=== PATIENT | female | born 1985 | race Caucasian/White ===

== ENCOUNTER 2024-04-15 12:08 | Inpatient (IN) ==
[2024-04-15] MEDS: SODIUM CHLORIDE 0.9% 1,000 ML IV ONE ×3 (12:48→15:54)
--- NOTE | 2024-04-15 13:15 | XRay Report ---
XR chest 1V portable CLINICAL HISTORY: sob COMPARISON STUDY: 03/29/2011 FINDINGS: Single view chest demonstrates no acute cardiopulmonary process. There is no infiltrate or pleural effusion. There is no pneumothorax. The heart and pulmonary vascularity are unremarkable. IMPRESSION: Negative single view chest ACT 112: Negative or not required by law. Electronically signed by: Savanna Webb M.D. 04/15/2024 1:14 PM
--- NOTE | 2024-04-15 13:17 | CT Scan Report ---
ABDOMEN AND PELVIS CT WITHOUT CONTRAST CT DOSE: 734.05 mGy.cm HISTORY: L flank pain TECHNIQUE: Multiaxial CT images of the abdomen and pelvis were performed without contrast. A dose lo wering technique was utilized adhering to the principles of ALARA. COMPARISON STUDY: None FINDINGS: ABDOMEN: There is mild fatty liver. Otherwise the liver, gallbladder, spleen, pancreas, and adrenal g lands have an unremarkable non-IV contrasted appearance. The kidneys show no hydronephrosis or calcul i. No abdominal aortic aneurysm. Pelvis: Urinary bladder is distended. There is a 3 cm cyst at the right ovary. Otherwise uterus and a dnexa are grossly unremarkable. There is moderate retained stool. No bowel inflammation or obstructio n. Normal appendix. No free fluid, free air, or abscess. No enlarged adenopathy. Osseous structures: No acute osseous findings. IMPRESSION: 1. No acute findings. 2. Otherwise as described. ACT 112: Negative or not required by law. The above report was generated using voice recognition software. It may contain grammatical, syntax o r spelling errors. Electronically signed by: Dev Ram M.D. 04/15/2024 1:16 PM
[2024-04-15 13:18] LABS: Appearance Urine Clear (Clear); Bacteria Urine Automated None Seen (None Seen); Bilirubin Urine Negative (Negative); Blood Urine Trace (Negative); Color Urine Yellow; Epithelial Cell Urine Auto 0-2 /hpf (0-2); Glucose Urine UA 2+ (Negative); Ketones Urine 4+ (Negative); Leukocyte Esterase Urine Negative (Negative); Nitrite Urine Negative (Negative); Protein Urine 2+ (Negative); RBC Urine Automated 0-2 /hpf (0-2); Specific Gravity Urine 1.025 (1.000-1.030); Urobilinogen Urine Negative (Negative); WBC Urine Automated 0-5 /hpf (0-5)
[2024-04-15 13:24] LABS: ALC (manual) 1.17 K/uL (1.2-3.4); ANC (manual) 21.34 K/uL (1.4-6.5); Hematocrit (blood only) 51.9 % (37.0-47.0); Hemoglobin 16.5 g/dl (12.0-16.0); Lymphocytes # (manual) 1.17 K/uL (1.2-3.4); Lymphocytes % (manual) 5 %; Mean Corpuscular Hemoglobin 30.2 pg (25.0-34.0); Mean Corpuscular Hgb Conc 31.8 g/dL (32.0-36.0); Mean Corpuscular Volume 94.9 fL (80.0-100.0); Mean Platelet Volume 10.6 fL (9.4-12.4); Monocytes # (manual) 0.94 K/uL (0.11-0.59); Monocytes % (manual) 4 %; Neutrophils # (manual) 21.34 K/uL (1.40-6.50); Neutrophils % (manual) 91 %; Platelet Count 413 K/uL (130-400); RDW Coefficient of Variation 11.6 % (11.5-14.5); RDW Standard Deviation 40.9 fL (36.4-46.3); Red Blood Count 5.47 M/uL (4.20-5.40); White Blood Count 23.45 K/ul (4.8-10.8)
[2024-04-15 13:37] LABS: Partial Thromboplastin Ratio 0.9; Partial Thromboplastin Time 23 Seconds (21-31); Prothrombin Time 10.7 Seconds (9.0-12.0)
[2024-04-15 13:47] LABS: Alanine Aminotransferase 30 U/L (7-52); Alkaline Phosphatase 160 U/L (34-104); BUN Creatinine Ratio 19.2 (10-20); Bilirubin,Total 0.4 mg/dl (0.2-1.0); Blood Urea Nitrogen 23 mg/dl (6-23); Carbon Dioxide 5 mmol/L (21-32); Chloride 98 mmol/L (98-107); Creatinine Clr Calc Pharmacy 56.5 ml/min; Glucose 543 mg/dl (70-99(Fasting)); Lipase 28 U/L (11-82); Total Protein 9.8 gm/dl (6.0-8.3)
--- NOTE | 2024-04-15 13:58 | Electrocardiogram Report ---
Test Reason : Blood Pressure : */* mmHG Vent. Rate : 112 BPM Atrial Rate : 112 BPM P-R Int : 142 ms QRS Dur : 88 ms QT Int : 370 ms P-R-T Axes : 63 28 -6 degrees QTcB Int : 505 ms Sinus tachycardia Nonspecific ST abnormality Abnormal ECG Confirmed by Jan Grove ([id number]) on 04/15/2024 1:58:33 PM Referred By: Confirmed By: Jan Grove
[2024-04-15 14:06] LABS: PCO2 VBG 30 mmHg (38-50); PO2 VBG 95 mmHg; pH VBG < 7.00 (7.36-7.41)
[2024-04-15] MEDS: MoRPHine SULFATE 2 MG/ML CARP IV STA (14:12)
[2024-04-15] MEDS: ALUMINUM/MAGNESIUM SUSP 30 ML UDC PO STA (14:12)
[2024-04-15] MEDS: CEFEPIME 2000MG 2,000 MG/20 ML SYR IV STA (14:12)
[2024-04-15] MEDS ORDERED: GLUCOSE 10 TAB/TUBE PO PRN (14:58)
[2024-04-15] MEDS ORDERED: DEXTROSE 50% 50 ML SYRINGE IV PRN (14:58)
[2024-04-15] MEDS ORDERED: GLUCAGON FOR INJ 1 MG VIAL SQ PRN (14:58)
[2024-04-15 15:00] LABS: Bilirubin Direct 0.1 mg/dl (0-0.2); Potassium 6.2 mmol/L (3.5-5.1)
[2024-04-15] MEDS: CALCIUM GLUCONATE 1,000 MG/60 ML BAG IV STA ×2 (15:17→20:11)
[2024-04-15 15:23] LABS: PCO2 ABG 14 mmHg (35-46); PO2 ABG 131 mmHg (80-95)
[2024-04-15] MEDS: INSULIN REGULAR 250 UNITS in SODIUM CHLORIDE 0.9% 247.5 ML IV SCH (15:24)
[2024-04-15 15:28] LABS: Allen Test Pos (Pos)
[2024-04-15] MEDS ORDERED: PHARMACY GLYCEMIC MGMT CONSULT PRN (15:31)
[2024-04-15] MEDS ORDERED: VANCOMYCIN CONSULT ACTIVE PRN (15:31)
[2024-04-15] MEDS: NovoLIN-R BOLUS FROM BAG IV ONE (15:32)
[2024-04-15] MEDS: STAT IV Infusion **Titration per Protocol STA (15:34)
[2024-04-15 15:45] LABS: pH ABG < 7.00 (7.35-7.45)
[2024-04-15] MEDS ORDERED: SODIUM CHLORIDE 0.9% 1,000 ML IV SCH (15:45)
[2024-04-15 15:49] LABS: Hematocrit (blood only) 46.2 % (37.0-47.0); Hemoglobin 14.6 g/dl (12.0-16.0); Mean Corpuscular Hemoglobin 30.4 pg (25.0-34.0); Mean Corpuscular Hgb Conc 31.6 g/dL (32.0-36.0); Mean Corpuscular Volume 96.3 fL (80.0-100.0); Mean Platelet Volume 10.5 fL (9.4-12.4); Platelet Count 391 K/uL (130-400); RDW Coefficient of Variation 11.6 % (11.5-14.5); RDW Standard Deviation 41.1 fL (36.4-46.3); White Blood Count 33.59 K/ul (4.8-10.8)
[2024-04-15] MEDS: SODIUM BICARB 8.4% INJ 50 MEQ/50 ML SYR IV STA (15:50)
--- NOTE | 2024-04-15 15:50 | History & Physical Report ---
Date of Service April 15, 2024 Assessment & Plan (1) DKA (diabetic ketoacidosis): Plan Severe DKA Patient presents with generalized fatigue, shortness of breath Found to be in severe DKA with pH of less than 7 Leukocytosis present Lactate elevated CT abdomen without contrast did not show any acute finding Chest x-rayno acute finding Plan to admit to ICU; discussed with ceo & founder. 100 mEq of bicarb ordered; another bolus of normal saline 1 L ordered as well. Plan to start on bicarb drip with sterile water at 200 cc/h Continue insulin drip VBG, BMP every 4 hours Started on empiric antibiotic with Zosyn and vancomycin. Obtain blood culture rest per ICU Time spent evaluating patient, direct bedside care, chart review, placing orders, interpretation of diagnostic studies, discussion with consultants, patient, and family members, as well as other required patient management activities is 75 minutes Please note the above document was generated using voice recognition software. It may contain grammatical, syntax or spelling errors. Any formal questions or concerns about the content, text or information contained within the body of this dictation should be directly addressed to the provider for clarification History of Present Illness Chief Complaint: Generalized weakness for 1 day Shortness of breath for 1 day Primary Care Provider: Cheyenne Balderas, History obtained from interview the patient and chart review. Patient is a 38-year-old female past medical history of type 1 diabetes mellitus, hypothyroidism, hyperlipidemia. She presents to the hospital with complaints of shortness of breath and fatigue for 1 day. She denies any fever, chills, chest pain, abdominal pain, urinary symptoms, joint pain or skin rash. She uses insulin pump; denies any malfunction. Diagnosed of type 1 diabetes in 2001. Has previous history of DKA requiring admission but not very recently. In the ED, patient was found to be normotensive, tachycardic, afebrile and saturating well on room air. She was found to have elevated WBC count Her VBG showed pH of less than 7 with bicarb of 5. Patient was referred for admission Allergies Allergy/AdvReac Type Severity Reaction Status Date / Time No Known Allergies Allergy Unverified 04/15/24 15:35 Home Medications Medication Instructions Recorded Confirmed Type atorvastatin 10 mg tablet 10 mg PO DAILY 04/15/24 04/15/24 History insulin aspart U-100 100 unit/mL 0 - 70 sliding scale dose 04/15/24 04/15/24 History subcutaneous solution continuous subcutaneous infusion CONTINOUS lisinopril 2.5 mg tablet 2.5 mg PO QAM 04/15/24 04/15/24 History Past Med/Surg History Problem List (Updated 04/15/24 @ 17:14 by Carmen Rae MD, [facility]) Type I diabetes mellitus Dyslipidemia High anion gap metabolic acidosis Hyperkalemia DKA (diabetic ketoacidosis) Ruptured, membranes, premature (Acute 12/29/13) Social History Smoking Status: Never smoker Hx Alcohol Use: Yes Alcohol type: wine Hx Substance Use: No Preferred Language: Austrian Communication Ability: Effective Carton Filler Required: No Beliefs That Will Affect Care: None Current Living Situation: Spouse and Family Other Information That Helps Us Care for You: No Feels Safe at Home: Yes Safety Concerns: Feels Safe At This Time Assistive Devices: Glasses Review of Systems Review of Systems: All systems reviewed & are unremarkable except as noted in Subjective Physical Exam Physical Exam: Constitutional: Appears lethargic; awakens with verbal stimuli. Reports generalized fatigue and tiredness. Respiratory: Bilateral vesicular breath sound Cardiovascular: RRR, no murmur, no edema Vessels: no JVD or carotid bruit Chest: normal inspection of chest Abdomen: Soft, nontender. Musculoskeletal: no cyanosis or clubbing, extremities motor strength 5/5 Skin: no rashes, warm and dry normal turgor Neurologic: PERRL, EOMI, accommodation nl, no face palsy, no dysarthria CN's II- XI intact bilaterally and moves all extremities Psychiatric: A+Ox3, euthymic affect Results & Data Results & Data Vital Signs (Past 12 Hours) Vital Signs Temp Pulse Pulse Resp BP BP Pulse Ox 04/15/24 14:49 111 H 04/15/24 14:41 112 H 24 137/89 100 04/15/24 13:50 111 H 18 182/96 H 97 04/15/24 13:05 36.4 C L 04/15/24 13:00 109 H 04/15/24 12:49 04/15/24 12:49 109 H 22 197/116 H 97 04/15/24 12:17 35.8 C L 22 176/87 H 100 O2 Del Method 04/15/24 14:49 04/15/24 14:41 Room Air 04/15/24 13:50 Room Air 04/15/24 13:05 04/15/24 13:00 04/15/24 12:49 Room Air 04/15/24 12:49 Room Air 04/15/24 12:17 Room Air
[2024-04-15 15:52] LABS: Estimated Average Glucose 252 mg/dl; Hemoglobin A1C 10.4 % (4.5-5.6)
[2024-04-15] MEDS: VANCOMYCIN HCL 1,250 MG in SODIUM CHLORIDE 0.9% 500 ML IV ONE (15:59)
[2024-04-15 16:03] LABS: Albumin Globulin Ratio 1.2 (0.9-2); Albumin Level 4.4 gm/dl (3.4-5.0); BUN Creatinine Ratio 20.5 (10-20); Bilirubin,Total 0.3 mg/dl (0.2-1.0); Creatinine Clr Calc Pharmacy 60.6 ml/min; Globulin 3.7 gm/dl (2.5-4.0); Magnesium 2.3 mg/dl (1.7-2.4); Phosphorus 5.2 mg/dl (2.5-4.9); Potassium 6.4 mmol/L (3.5-5.1); Total Protein 8.1 gm/dl (6.0-8.3)
--- NOTE | 2024-04-15 16:03 | Critical Care Consultation ---
Date of Consultation April 15, 2024 Assessment & Plan (1) DKA (diabetic ketoacidosis): (2) Hyperkalemia: (3) High anion gap metabolic acidosis: (4) Dyslipidemia: (5) Type I diabetes mellitus: Plan Reason Critically Ill: 38-year-old female coming to the hospital for not feeling well Past medical history: Type 1 diabetes Neuro - [facility] ICU: Negative Cardiac - -- Tachycardia Likely secondary to volume depletion as well as severe acidosis EKG 04/15/2024 12:37 PM: Sinus tachycardia, normal axis, no ST-T wave changes appreciated --Prolonged QTc Avoid QT prolonging medication -- Dyslipidemia On atorvastatin at home Respiratory - -- Tachypneic Likely compensation to metabolic acidosis Saturating well on room air GI - -- Mildly elevated alk phos with normal AST ALT and bilirubin RENAL/LYTES - -- HAGMA Delta-delta: Pure anion gap Likely sec to diabetic ketoacidosis with lactic acidosis Follow up serum osm, urine osm, urine lytes ABG shows pH less than 7 Monitor Continue with insulin drip until anion gap closes Decreasing blood glucose no more than 100 in an hour Replace potassium IV when potassium level between 3.3-5.3 BMP every 4 hours Continue with IV fluids ENDO - -- ICU hyperglycemia protocol HEME - -- Monitor H&H ID - -- Leukocytosis Likely reactive to DKA Continue to monitor Chest x-ray does not show any pulmonary opacities --Prophylaxis VTE: Heparin GI: None Lines: Peripheral Diet: N.p.o. Plan: Give another liter of bolus so that she will get total 3 L of IV fluids Given that the pH is less than 7, give 100 mEq of bicarb push followed by bicarb drip is still high water Normal saline at 200 mL an hour. Once the potassium goes less than 5.3, will need 40 mg of potassium and 1 L of bag Mottled skin is likely from hypoperfusion. She is saturating well. Bear hugger for hypothermia. BMP every 4 hours, repeat VBG in 4 hours as well. Once the pH is greater than 7.1 okay to discontinue bicarb drip Okay to discontinue vancomycin if the nasal MRSA is negative Empiric Zosyn for the time being is reasonable. Case was discussed with primary team I have personally spent 61 minutes of critical care time in the direct management of this patient. This is a life/limb threatening event. This includes time spent evaluating patient, direct bedside care, chart review, placing orders, interpretation of diagnostic studies, discussion with consultants, patient, and family members, as well as other required patient management activities. This time is exclusive of all separately billable procedures, and teaching time and separate from and in addition to any other critical care service time. History of Present Illness History of Present Illness 38-year-old female coming to the hospital for not feeling well Past medical history: Type 1 diabetes Was sent to the ICU for DKA At the time of examination patient was lethargic but answering all the questions appropriately Her systolic blood pressure was in the 130s with MAP in the high 70s, heart rate was in the low 120s to high 1 teens She was saturating 100% on room air. She was little bit tachypneic. Was able to answer the questions in full sentence. She had to take some rest between answering questions that she needed some time to recollect Patient stated that she has been not feeling well since last night. Prior to that she was doing okay She is compliant with insulin on a usual basis but she has missed some doses here and there. Denies any dysuria, no cough, no diarrhea Denies any unusual headache or blurry vision No fever or chills Social history: Lifetime non-smoker. Works in [employer]. Allergies Allergy/AdvReac Type Severity Reaction Status Date / Time No Known Allergies Allergy Unverified 04/15/24 15:35 Home Medications Medication Instructions Recorded Confirmed Type atorvastatin 10 mg tablet 10 mg PO DAILY 04/15/24 04/15/24 History insulin aspart U-100 100 unit/mL 0 - 70 sliding scale dose 04/15/24 04/15/24 History subcutaneous solution continuous subcutaneous infusion CONTINOUS lisinopril 2.5 mg tablet 2.5 mg PO QAM 04/15/24 04/15/24 History Patient History Social History Smoking Status: Never smoker Preferred Language: Danish Feels Safe at Home: Yes Review of Systems 2 Review of Systems: All systems reviewed & are unremarkable except as noted in HPI & below Physical Exam 2 Physical Exam: Constitutional: No acute distress HEENT: EOMI, PERRLA Respiratory system: Good air entry bilaterally, no wheeze, no rhonchi, no crackles CVS: S1-S2 positive, no murmurs or gallops, tachycardia Abdomen: Soft, nontender, nondistended, positive bowel sounds x4 Extremities: +2 pulses bilaterally radialis/ dorsalis pedis, no cyanosis, no edema, mottled lower extremities, warm to touch Neuro: Awake alert oriented x3 Psych: Normal mood and affect G/U: No lal Skin: no rashes, warm and dry Lymphatic: no cervical or axillary lymphadenopathy Results & Data Results & Data Vital Signs (Past 12 Hours) Vital Signs Temp Pulse Pulse Resp BP BP Pulse Ox 04/15/24 15:55 124 H 28 H 176/97 H 99 04/15/24 14:49 111 H 04/15/24 14:41 112 H 24 137/89 100 04/15/24 13:50 111 H 18 182/96 H 97 04/15/24 13:05 36.4 C L 04/15/24 13:00 109 H 04/15/24 12:49 04/15/24 12:49 109 H 22 197/116 H 97 04/15/24 12:17 35.8 C L 22 176/87 H 100 O2 Del Method 04/15/24 15:55 Room Air 04/15/24 14:49 04/15/24 14:41 Room Air 04/15/24 13:50 Room Air 04/15/24 13:05 04/15/24 13:00 04/15/24 12:49 Room Air 04/15/24 12:49 Room Air 04/15/24 12:17 Room Air Laboratory Results 04/15/24 15:29 Coding Level of Care Code 51745 CRITICAL CARE 1ST 30-74M Diagnoses DKA (diabetic ketoacidosis) E11.10 Hyperkalemia E87.5 High anion gap metabolic acidosis E87.29 Dyslipidemia E78.5 Type I diabetes mellitus E10.9
[2024-04-15] MEDS: SODIUM BICARB 8.4% INJ 50 MEQ/50 ML SYR IV ONE (16:06)
[2024-04-15 16:11] LABS: ALC (manual) 1.01 K/uL (1.2-3.4); ANC (manual) 30.57 K/uL (1.4-6.5); Lymphocytes # (manual) 1.01 K/uL (1.2-3.4); Lymphocytes % (manual) 3 %; Monocytes # (manual) 2.02 K/uL (0.11-0.59); Monocytes % (manual) 6 %; Neutrophils # (manual) 30.57 K/uL (1.40-6.50); Neutrophils % (manual) 91 %; RBC Morphology Unremarkable
[2024-04-15] MEDS: HHS GOAL RANGE 250-350 mg/dl ONE (16:26)
[2024-04-15] MEDS: SODIUM BICARBONATE 8.4% 100 MEQ in WATER, STERILE 1,000 ML IV SCH (16:54)
[2024-04-15] MEDS: ICU Protocol for HYPERglycemia SCH (17:30)
[2024-04-15] MEDS: INSULIN ASPART PER UNIT CHARGE SC SCH (17:55)
[2024-04-15] MEDS: SODIUM CHLORIDE 0.9% 1,000 ML IV SCH (17:56)
[2024-04-15] MEDS: 4.5GM X1 IV STA (17:57)
--- OUTSIDE RECORDS SUMMARY | 2024-04-15 18:56 | External Medical Summary | Summary of Care ---
Author Name Unknown Organization [facility] Address [address] [place] [facility] [place] [place] [address] Phone [phone] Care Team Providers Care Finisher Machine Name Role Phone Cheyenne Balderas DO Primary Care Provider [phone] Reason for Visit * Reason Onset Date Comments Fax 02/28/2024 [employer] Encounter Details Date Type Department Care Team (Late st Contact Info) Description 02/28/2024 Telephone [facility] [address] [facility] [place] [phone] Cheyenne Balderas DO [address] [facility] [place] [address] Fax ([employer]) Allergies No known active allergiesdocumented as of this encounter (statuses as of 02/28/2024) Medications glucagon (GLUCAGON EMERGENCY) 1 MG KITIndications:T ype 1 diabetes mellitus with hemoglobin A1c goal of less than 7.0% ([facility]) 1 TIME ONLY 1 Kit 7 Active Additional Information Patient not taking.Reported on 10/01/2022 levothyroxine (LEVOXYL) 25 MCG TabletIndication s:Hypothyroidism , unspecified type TAKE 1 TABLET EVERY DAY 90 Tab 1 8 Active Additional Information Patient not taking.Reported on 10/01/2022 Insulin Infusion Pump (MINIMED 670G INSULIN PUMP) DEVIIndications: Type 1 diabetes mellitus with hemoglobin A1c goal of less than 7.0% ([facility]) 8 Active insulin aspart (NOVOLOG FLEXPEN) 100 UNIT/ML SOPNIndications: Type 1 diabetes mellitus with hemoglobin A1c goal of less than 7.0% (HCC) USE DIRECTED FOR INSULIN PUMP UP TO 70 UNITS PER DAY 60 mL 1 9 Active insulin glargine (LANTUS) 100 UNIT/ML injectionIndicat ions:Type 1 diabetes mellitus with hemoglobin A1c goal of less than 7.0% (HCC) Inject 20 Units under the skin at bedtime. 20 units at bedtime (this is back up insulin in case her pump fails) 2 Vial 11 0 Active Insulin Aspart 100 UNIT/ML Injection Solution (NovoLOG)Indicat ions:Type 1 diabetes mellitus with hemoglobin A1c goal of less than 7.0% (HCC) USE DIRECTED FOR INSULIN PUMP UP TO 70 UNITS PER DAY 70 mL 1 4 Active Contour Next Test In Vitro Strip (Glucose Blood)Indication s:Type 1 diabetes mellitus with hemoglobin A1c goal of less than 7.0% (HCC),Dyslipidem ia, goal LDL below 70 USE TO TEST BLOOD SUGAR UP TO 6 TIMES DAILY 600 Strip 3 4 Active Lisinopril 2.5 MG Oral Tablet (Prinivil)Indica tions:Microalbum inuria TAKE 1 TABLET BY MOUTH EVERY DAY IN THE MORNING 90 Tablet 4 Active Atorvastatin Calcium 10 MG Oral Tablet (Lipitor)Indicat ions:Type 1 diabetes mellitus with hemoglobin A1c goal of less than 7.0% (HCC),Dyslipidem ia, goal LDL below 70 TAKE 1 TABLET BY MOUTH EVERY DAY 90 Tablet 4 Active documented as of this encounter (statuses as of 02/28/2024) Active Problems Problem Noted Date Diagnosed Date Type 1 diabetes mellitus wit h hemoglobin A1c goal of less than 7.0% 10/31/2015 Diabetic macular edema 01/20/2015 Diabetic retinopathy associa charis with type 1 diabetes mellitus 08/18/2014 Hypothyroidism 08/18/2014 Microalbuminuria 12/28/2012 Dyslipidemia, goal LDL below 70 12/27/2012 documented as of this encounter (statuses as of 02/28/2024) Resolved Problems Problem Noted Date Diagnosed Date Resolved Date Pre-existing type 1 diabetes mellitus in in second trimester 10/22/2013 09/11/2016 Advanced directives, counseling/discussion 10/21/2013 09/11/2016 Overview (06/25/2013): No, Advance Directive brochure offered, patient declined. Hypothyroidism complicating 07/09/2013 01/07/2014 Overview (10/28/2013): 07/08/13: TSH=5.01. Started on 25mcg levothyroxine daily. Recheck one month 10/13/13: TSH = 2.56 Proteinuria 06/24/2013 01/07/2014 Overview (07/08/2013): 24hr urine protein 0.420 as baseline at 8wk of . Message to Dr. Payan in nephrology: Would expect her proteinuria to worsen a bit in and w/ being off lisinopril (though was on very low dose) >> she's still first trimester so proteinuria will likely worsen. She had microalbuminuria in past as well. Her blood pressures aren't elevated even for person. Recommend tight focus on diabetic control and close f/u w/ MFM; if still issues post or if ongoing concerns prepartum, please refer to nephrology. , normal first 06/12/201312/17 Overview (12/24/2013): Patient received flu vaccine. 12/24/2013 Michaela Wood RN 12/24/2013 Tdap Vaccine administered per clinic protocol. Pt given VIS(vaccine information sheet) Michaela Wood RN Tick bite of lower back 01/15/201308/17 Overview (01/15/2013): left Type 1 diabetes mellitus wit h hemoglobin A1c goal of less than 7.0% 10/04/2011 01/07/2014 Overview (07/18/2015): MFM referral. EKG, baseline preeclamptic labs and 24hr urine ordered. 1. Recommend a full opthalmology exam within 1 year of . Patient states she had a complete eye exam in January 2013. 2. Recommend baseline labwork LARRY (if not already done) with 24 hour urine protein and serum AST/ALT/creatinine, TSH (done) and hemoglobin A1C. Then monthly hemoglobin A1C. 07/08/13: A1c=8.5 09/09/13: A1c-6.3 10/23/13: A1c=5.5 11/18/13: A1c=5.6 12/21/13: A1c= 6.0 3. Obtain a baseline EKG (done) in anyone with a history of diabetes greater than10 years or over age 30. Patient states she had an EKG completed last Saturday. 4. Recommend monitoring blood sugars with daily Fasting Blood Sugar and 2 hour post prandial measurements and manipulating medications to keep Fasting Blood Sugar <90 and PP sugars less than 120. 5. Recommend dietary consult. 6. Recommend urine culture each trimester. 7. Recommend Maternal Medicine ultrasound for full anatomy at 19-20 weeks (done) and for echocardiography at 22-23 weeks (done). 8. Recommend surveillance with twice weekly NST beginning at 32 weeks. 9. Recommend Maternal Medicine growth ultrasound every 4 weeks after 24 weeks gestation. 11/19/2013: EFW 1550 grams (75-90%) 10. Deliver at [id number]. If poor blood sugar control may recommend delivery by 37-38 weeks after amniocentesis to prove lung maturity. ICD-10 update of inactive term documented as of this encounter (statuses as of 02/28/2024) Immunizations Name Administration Dates Next Due Hepatitis B, 20+ yrs 09/14/2016 Pneumococcal Polysaccharide PPV23 (Pneumovax) 06/27/2005 Seasonal Influenza Vac., MDV , IM, 0.5 mL (Fluzone) 12/24/2013,12/27/2012 Seasonal Influenza, PF, 6 M & above, IM , (FluLaval or Fluzone) 02/23/2020,05/21/2019,12/24/2016 12/24/2017 TDAP (age 10 and older)(Boostrix) 12/24/2013,02/2013 documented as of this encounter Social History Tobacco Use Types Packs/Day Years Used Date Smoking Tobacco: Never Smokeless Tobacco: Never Alcohol Use Standard Drinks/Week Comments Yes 0 (1 standard drink = 0.6 oz pur e alcohol) socially PHQ-2 Answer Date Recorded PHQ-2 Score 0 01/21/2018 Hunger Vital Sign Answer Date Recorded Within the past 12 months, y ou worried that your food would run out before you got the money to buy more. Never true 09/28/19 23 Within the past 12 months, t he food you bought just didn't last and you didn't have money to get more. Never true 09/27/2022 Childcare Answer Date Recorded Do you feel overwhelmed with taking care of a child, family member or friend? No 09/27/2022 Does your family need help f inding childcare? (Household - for ages 0-17 years) Not on file 09/27/2022 Clothing Answer Date Recorded Have you been unable to get clothing when it was really needed? No 09/27/2022 Is your family able to get c lothes or diapers when needed? (Household - for ages 0-17 years) Not on file 09/27/2022 Personal Safety Answer Date Recorded Do you feel unsafe or have concerns for your saf ety? No 09/27/2022 Do you have concerns for you r family's safety? (Household - for ages 0-17 years) Not on file 09/27/2022 Utilities Answer Date Recorded Do you have trouble paying y our heating, water, or electric bill? (Adult - for ages 18 years and over) Not on file 10/09/2023 Is your family able to pay t he heat, water, or electric bill? (Household - for ages 0-17 years) Not on file 10/09/2023 Does your family have access to good internet? (Household - for ages 0-17 years) Not on file 10/09/2023 Employment Status Answer Date Recorded Are you unemployed or without regular income? No 09/27/2022 Does the household have a re gular source of income? (Household - for ages 0-17 years) Not on file 09/27/2022 Social Connections Answer Date Recorded How often do you feel lonely or isolated from those around you? (Adult - for ages 18 years and over) Not on file 10/09/2023 Financial Resource Strain Answer Date R ecorded Do you have any trouble payi ng for your medications, or do you think you might in the future? No 09/27/2022 Does your family have troubl e paying for medicine? (Household - for ages 0-17 years) Not on file 09/27/2022 Transportation Needs Answer Date Record ed READ ONLY Do you have troubl e getting a ride to medical visits or work? Never True 09/27/2022 Does your family have a hard time getting a ride to doctors visits? (Household - for ages 0-17 years) Not on file 09/27/2022 Has lack of transportation k ept you from medical appointments, meetings, work, or from getting things needed for daily living? Check all that apply. (Adult - for ages 18 years and over) Not on file 09/27/2022 Do you (or your family) have trouble finding or paying for a ride (transportation)? (Household - for ages 0-17 years) Not on file 09/27/2022 Housing Stability Answer Date Recorded Do you currently live in a s helter or have no steady place to sleep at night? No 09/27/2022 READ ONLY Do you think you a re at risk of becoming homeless? No 09/27/2022 Does your family worry about paying for your home or becoming homeless? (Household - for ages 0-17 years) Not on file 0 09/27/2022 Are you homeless or worried that you might be in the future? (Adult - for ages 18 years and over) Not on file Are you (or your family) hans eless or worried that you might be in the future? (Household - for ages 0-17 years) Not on file Food Insecurity Answer Date Recorded Do you need food for this week? No 09/27/2022 Are you able to get enough f ood for your family? (Household - for ages 0-17 years) Not on file 09/27/2022 Does your family need food t his week? (Household - for ages 0-17 years) Not on file 09/27/2022 Do you always have enough fo od for your family? 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 Cheyenne Balderas ORDER received from [employer] and FAXED documented in this encounter Plan of Treatment Health Maintenance Due Date Last Done Comments Pneumococcal Vaccine: Pediatrics (0 to 5 Years) and At-Risk Patients (6 to 64 Years) (2 of 2 - PCV) 06/27/2006 06/27/2005 HPV/Co-Test 12/14/2015 Cervical Cancer Screening 06/12/2016 Pap Smear 06/12/2016 06/12/2013, 11/05/2011 Hepatitis B Vaccine (2 of 3 - 19+ 3-dose series) 10/12/2016 09/14/2016 Albumin/Creatinine Ratio 10/30/2016 016, 12/27/2012, 10/04/2011 Diabetic Foot Exam 12/24/2017 12/24/2016, 0 10/31/2015, 08/27/2013, Additional history exists Depression Screening 03/28/2018 03/28/2017 Diabetic Eye Exam 09/20/2021 09/20/2020, , 02/23/2020, Additional history exists HbA1c 04/03/2023 10/01/2022, 08/18, 06/15/2016, Additional history exists GFR 10/02/2023 10/01/2022, 08/18, 06/15/2016, Additional history exists TSH 10/02/2023 10/01/2022, 08/18, 06/15/2016, Additional history exists COVID-19 Vaccine ( season) 2023 Influenza Vaccine (FLU shot) (#1) 2023 02/23/2020, 05/21/2019, 12/24/2016, Additional history exists DTap/Tdap Vaccines (3 - Td or Tdap) 12/25/2023 12/24/2013, 12/27/2012 HPV (Gardasil) Vaccine Aged Out No lo nger eligible based on patient's age to complete this topic MENINGOCOCCAL (MENACTRA/MENVEO) Aged Out No longer eligible based on patient's age to complete this topic documented as of this encounter Medical Devices Not on filedocumented as of this encounter Care Teams Finisher Machine Relationship Specialty Start Date End Date Cheyenne Balderas DO [address] [place] [facility] [place] [address] PCP - General Family Medicine 10/04/11 documented as of this encounter
--- OUTSIDE RECORDS SUMMARY | 2024-04-15 18:56 | External Medical Summary | Summary of Care ---
Author Name Unknown Organization [facility] Address [address] [address] Phone [phone] Care Team Providers Care Fine Dining Server Name Role Phone Cheyenne Balderas DO Primary Care Provider [phone] Encounter Details Date Type Department Care Team (Late st Contact Info) Description 12/12/2023 Orders Only PATIENT PORTAL DO NOT DELETE THIS DEPT USED BY [place] [id number] Allergies No known active allergiesdocumented as of this encounter (statuses as of 12/12/2023) Medications Medication Sig Dispensed Refills Start Date End Date Status glucagon (GLUCAGON EMERGENCY) 1 MG KITIndications:Type 1 diabetes mellitus with hemoglobin A1c goal of less than 7.0% (HCC) 1 TIME ONLY 1 Kit 06/15/2016 Active Additional Information Patient not taking.Reported on 10/01/2022 levothyroxine (LEVOXYL) 25 MCG TabletIndications:H ypothyroidism, unspecified type TAKE 1 TABLET EVERY DAY 90 Tab 1 03/27/2017 Active Additional Information Patient not taking.Reported on 10/01/2022 Insulin Infusion Pump (MINIMED 670G INSULIN PUMP) DEVIIndications:Typ e 1 diabetes mellitus with hemoglobin A1c goal of less than 7.0% (HCC) 05/09/2017 Active insulin aspart (NOVOLOG FLEXPEN) 100 UNIT/ML SOPNIndications:Typ e 1 diabetes mellitus with hemoglobin A1c goal of less than 7.0% (HCC) USE DIRECTED FOR INSULIN PUMP UP TO 70 UNITS PER DAY 60 mL 1 10/20/2018 Active insulin glargine (LANTUS) 100 UNIT/ML injectionIndication s:Type 1 diabetes mellitus with hemoglobin A1c goal of less than 7.0% (HCC) Inject 20 Units under the skin at bedtime. 20 units at bedtime (this is back up insulin in case her pump fails) 2 Vial 11 06/01/2019 Active Insulin Aspart 100 UNIT/ML Injection Solution (NovoLOG)Indication s:Type 1 diabetes mellitus with hemoglobin A1c goal of less than 7.0% (HCC) USE DIRECTED FOR INSULIN PUMP UP TO 70 UNITS PER DAY 70 mL 1 03/20/2023 Active Contour Next Test In Vitro Strip (Glucose Blood)Indications:T ype 1 diabetes mellitus with hemoglobin A1c goal of less than 7.0% (HCC),Dyslipidemia, goal LDL below 70 USE TO TEST BLOOD SUGAR UP TO 6 TIMES DAILY 600 Strip 3 03/20/2023 Active Lisinopril 2.5 MG Oral Tablet (Prinivil)Indicatio ns:Microalbuminuria TAKE 1 TABLET BY MOUTH EVERY DAY IN THE MORNING 90 Tablet 12/09/2023 Active Atorvastatin Calcium 10 MG Oral Tablet (Lipitor)Indication s:Type 1 diabetes mellitus with hemoglobin A1c goal of less than 7.0% (HCC),Dyslipidemia, goal LDL below 70 TAKE 1 TABLET BY MOUTH EVERY DAY 90 Tablet 12/09/2023 Active documented as of this encounter (statuses as of 12/12/2023) Active Problems Problem Noted Date Diagnosed Date Type 1 diabetes mellitus wit h hemoglobin A1c goal of less than 7.0% 10/31/2015 Diabetic macular edema 01/20/2015 Diabetic retinopathy associa charis with type 1 diabetes mellitus 08/18/2014 Hypothyroidism 08/18/2014 Microalbuminuria 12/28/2012 Dyslipidemia, goal LDL below 70 12/27/2012 documented as of this encounter (statuses as of 12/12/2023) Resolved Problems Problem Noted Date Diagnosed Date Resolved Date Pre-existing type 1 diabetes mellitus in in second trimester 10/22/2013 09/11/2016 Advanced directives, counseling/discussion 10/21/2013 09/11/2016 Overview: No, Advance Directive brochure offered, patient declined. Hypothyroidism complicating 07/09/2013 01/07/2014 Overview: 07/08/13: TSH=5.01. Started on 25mcg levothyroxine daily. Recheck one month 10/13/13: TSH = 2.56 Proteinuria 06/24/2013 01/07/2014 Overview: 24hr urine protein 0.420 as baseline at [...] refer to nephrology. , normal first 06/12/201312/17 Overview: Patient received flu vaccine. 12/24/2013 Michaela Wood RN 12/24/2013 Tdap Vaccine administered per clinic protocol. Pt given VIS(vaccine information sheet) Michaela Wood RN Tick bite of lower back 01/15/201308/17 Overview: left Type 1 diabetes mellitus wit h hemoglobin A1c goal of less than 7.0% 10/04/2011 01/07/2014 Overview: MFM referral. EKG, baseline preeclamptic labs and [...] EFW 1550 grams (75-90%) 10. Deliver at [id number]. If poor blood sugar control may recommend delivery by 37-38 weeks after amniocentesis to prove lung maturity. ICD-10 update of inactive term documented as of this encounter (statuses as of 12/12/2023) Immunizations Name Administration Dates Next Due Hepatitis B, 20+ yrs 09/14/2016 Pneumococcal Polysaccharide PPV23 (Pneumovax) 06/27/2005 Seasonal Influenza, PF, 6 M & above, IM , (FluLaval or Fluzone) 02/23/2020,05/21/2019,12/24/2016 12/24/2017 Seasonal Influenza, Trivalen t, (IIV3), with Preserv, (Fluzone) 12/24/2013,12/27/2012 TDAP (age 10 and older)(Boostrix) 12/24/2013,02/2013 documented [...] No 09/27/2022 Does the household have a [facility] source of income? (Household - for ages [...] ages 0-17 years) Not on file 09/27/2022 Sex and Gender Information Value Date Recorded Sex Assigned at Female 09/27/2022 4:36 PM EDT Gender Identity Female 09/27/2022 4:36 PM EDT Sexual Orientation Straight 04/06/2020 11 :04 AM EST Job Start Date Occupation Industry Not on file Not on file Not on file documented as of this encounter Plan of Treatment Health Maintenance [...] filedocumented as of this encounter Care Teams Fine Dining Server Relationship Specialty Start Date End Date Cheyenne Balderas DO [address] [place] [id number] PCP - General Family Medicine 10/04/11 documented as of this encounter
--- OUTSIDE RECORDS SUMMARY | 2024-04-15 18:56 | External Medical Summary | Summary of Care ---
Author Name Unknown Organization [facility] Address [address] [place] [address] Phone [phone] Care Team Providers Care Manager Employment Name Role Phone Saleem Cortes DO Primary Care Provider Reason for Visit * Reason Comments eRx-Medication Refill Encounter Details Date Type Department Care Team (Late st Contact Info) Description 03/07/2024 Refill [facility] DEPT CLOSED - 03/05/[address] [place] [phone] Saleem Cortes DO [address] [place] [address] Type 1 diabetes mellitus with hemoglobin A1c goal of less than 7.0% (HCC); Dyslipidemia, goal LDL below 70; Microalbuminuria Allergies No known active allergiesdocumented as of this encounter (statuses as of 03/09/2024) Medications glucagon (GLUCAGON EMERGENCY) 1 MG KITIndications: Type 1 diabetes mellitus with hemoglobin A1c goal of less than 7.0% (HCC) 1 TIME ONLY 1 Kit 06/16/19 17 Active Additional Information Patient not taking.Reported on 10/01/2022 levothyroxine (LEVOXYL) 25 MCG TabletIndicatio ns:Hypothyroidi sm, unspecified type TAKE 1 TABLET EVERY DAY 90 Tab 1 03/27/19 18 Active Additional Information Patient not taking.Reported on 10/01/2022 Insulin Infusion Pump (MINIMED 670G INSULIN PUMP) DEVIIndications :Type 1 diabetes mellitus with hemoglobin A1c goal of less than 7.0% (HCC) 05/09/19 18 Active insulin aspart (NOVOLOG FLEXPEN) 100 UNIT/ML SOPNIndications :Type 1 diabetes mellitus with hemoglobin A1c goal of less than 7.0% (HCC) USE DIRECTED FOR INSULIN PUMP UP TO 70 UNITS PER DAY 60 mL 1 10/21/19 19 Active insulin glargine (LANTUS) 100 UNIT/ML injectionIndica tions:Type 1 diabetes mellitus with hemoglobin A1c goal of less than 7.0% (HCC) Inject 20 Units under the skin at bedtime. 20 units at bedtime (this is back up insulin in case her pump fails) 2 Vial 11 06/01/19 20 Active Contour Next Test In Vitro Strip (Glucose Blood)Indicatio ns:Type 1 diabetes mellitus with hemoglobin A1c goal of less than 7.0% (HCC),Dyslipide jus, goal LDL below 70 USE TO TEST BLOOD SUGAR UP TO 6 TIMES DAILY 600 Strip 3 03/20/19 24 Active Atorvastatin Calcium 10 MG Oral Tablet (Lipitor)Indica tions:Type 1 diabetes mellitus with hemoglobin A1c goal of less than 7.0% (HCC),Dyslipide jus, goal LDL below 70 TAKE 1 TABLET BY MOUTH EVERY DAY 90 Tablet 03/09/20 24 Active Lisinopril 2.5 MG Oral Tablet (Prinivil)Indic ations:Microalb uminuria TAKE 1 TABLET BY MOUTH EVERY DAY IN THE MORNING 90 Tablet 03/09/20 24 Active Insulin Aspart 100 UNIT/ML Injection Solution (NovoLOG)Indica tions:Type 1 diabetes mellitus with hemoglobin A1c goal of less than 7.0% (HCC) USE DIRECTED FOR INSULIN PUMP UP TO 70 UNITS PER DAY 70 mL 1 03/09/20 24 Active Insulin Aspart 100 UNIT/ML Injection Solution (NovoLOG)Indica tions:Type 1 diabetes mellitus with hemoglobin A1c goal of less than 7.0% (HCC) USE DIRECTED FOR INSULIN PUMP UP TO 70 UNITS PER DAY 70 mL 1 03/20/19 24 024 Discontinued Lisinopril 2.5 MG Oral Tablet (Prinivil)Indic ations:Microalb uminuria TAKE 1 TABLET BY MOUTH EVERY DAY IN THE MORNING 90 Tablet 12/09/19 24 024 Discontinued Atorvastatin Calcium 10 MG Oral Tablet (Lipitor)Indica tions:Type 1 diabetes mellitus with hemoglobin A1c goal of less than 7.0% ([facility]),Dyslipide jus, goal LDL below 70 TAKE 1 TABLET BY MOUTH EVERY DAY 90 Tablet 12/09/19 24 024 Discontinued documented as of this encounter (statuses as of 03/09/2024) Active Problems Problem Noted Date Diagnosed Date Type 1 diabetes mellitus wit h hemoglobin A1c goal of less than 7.0% 10/31/2015 Diabetic macular edema 01/20/2015 Diabetic retinopathy associa charis with type 1 diabetes mellitus 08/18/2014 Hypothyroidism 08/18/2014 Microalbuminuria 12/28/2012 Dyslipidemia, goal LDL below 70 12/27/2012 documented as of this encounter (statuses as of 03/09/2024) Resolved Problems Problem Noted Date Diagnosed Date [...] EFW 1550 grams (75-90%) 10. Deliver at [id number]. If poor blood sugar control may recommend delivery by 37-38 weeks after amniocentesis to prove lung maturity. ICD-10 update of inactive term documented as of this encounter (statuses as of 03/09/2024) Immunizations Name Administration Dates Next Due Hepatitis [...] encounter Miscellaneous Notes * Telephone Encounter - Evens Slaughter [facility] - 03/09/2024 11:16 AM EST Signed Prescriptions: Disp Refills Atorvastatin Calcium 10 MG Oral Tablet (Li*90 Tab*1 Sig: TAKE 1 TABLET BY MOUTH EVERY DAYAuthorizing Provider: SALEEM CORTES User: EVENS SLAUGHTER Lisinopril 2.5 MG Oral Tablet (Prinivil) 90 Tab*01 Sig: TAKE 1 TABLET BY MOUTH EVERY DAY IN THE [facility] NINGAuthorizing Provider: SALEEM CORTES User: EVENS SLAUGHTER Insulin Aspart 100UNIT/ML Injection Solut*70 mL 1 Sig: USE DIRECTED FOR INSULIN PUMP UP TO 70 UNITS PER DAYAuthorizing Provider: SALEEM CORTES User: EVENS SLAUGHTER documented in this encounter Plan of Treatment [...] Not on filedocumented as of this encounter Visit Diagnoses Diagnosis Type 1 diabetes mellitus with hemoglobin A1c goal of less than 7.0% (HCC) Dyslipidemia, goal LDL below 70 Other and unspecified hyperlipidemia Microalbuminuria Proteinuria documented in this encounter Care Teams Manager Employment Relationship Specialty Start Date End Date Saleem Cortes DO PCP - General Family Medicine 10/04/11 documented as of this encounter
--- OUTSIDE RECORDS SUMMARY | 2024-04-15 18:57 | External Medical Summary | Summary of Care ---
Author Name Unknown Organization [facility] Address [address] [place] [address] Phone [phone] Care Team Providers Care Rn Angiography Name Role Phone Andrey Saleem Fredy YOST Primary Care Provider [phone] Reason for Visit * Reason Comments eRx-Medication Refill Encounter Details Date Type Department Care Team (Late st Contact Info) Description 12/07/2023 Refill [facility] [address] [place] [address] Nancy Escalera MD [address] [place] [address] Hypothyroidism, unspecified type*; Microalbuminuria; Type 1 diabetes mellitus with hemoglobin A1c goal of less than 7.0% (HCC); Dyslipidemia, goal LDL below 70 Allergies No known active allergiesdocumented as of this encounter (statuses as of 12/10/2023) Medications Medication Sig Dispensed Refills Start Date End Date Status glucagon (GLUCAGON EMERGENCY) 1 MG KITIndications:Ty pe 1 diabetes mellitus with hemoglobin A1c goal of less than 7.0% (HCC) 1 TIME ONLY 1 Kit 06/15/2016 Active Additional Information Patient not taking.Reported on 10/01/2022 levothyroxine (LEVOXYL) 25 MCG TabletIndications :Hypothyroidism, unspecified type TAKE 1 TABLET EVERY DAY 90 Tab 1 03/27/2017 Active Additional Information Patient not taking.Reported on 10/01/2022 Insulin Infusion Pump ([employer] 670G INSULIN PUMP) DEVIIndications:T ype 1 diabetes mellitus with hemoglobin A1c goal of less than 7.0% (HCC) 05/09/2017 Active insulin aspart (NOVOLOG FLEXPEN) 100 UNIT/ML SOPNIndications:T ype 1 diabetes mellitus with hemoglobin A1c goal of less than 7.0% (HCC) USE DIRECTED FOR INSULIN PUMP UP TO 70 UNITS PER DAY 60 mL 1 10/20/2018 Active insulin glargine (LANTUS) 100 UNIT/ML injectionIndicati ons:Type 1 diabetes mellitus with hemoglobin A1c goal of less than 7.0% (HCC) Inject 20 Units under the skin at bedtime. 20 units at bedtime (this is back up insulin in case her pump fails) 2 Vial 11 06/01/2019 Active Insulin Aspart 100 UNIT/ML Injection Solution (NovoLOG)Indicati ons:Type 1 diabetes mellitus with hemoglobin A1c goal of less than 7.0% (HCC) USE DIRECTED FOR INSULIN PUMP UP TO 70 UNITS PER DAY 70 mL 1 03/20/2023 Active Contour Next Test In Vitro Strip (Glucose Blood)Indications :Type 1 diabetes mellitus with hemoglobin A1c goal of less than 7.0% (HCC),Dyslipidemi a, goal LDL below 70 USE TO TEST BLOOD SUGAR UP TO 6 TIMES DAILY 600 Strip 3 03/20/2023 Active Lisinopril 2.5 MG Oral Tablet (Prinivil)Indicat ions:Microalbumin uria TAKE 1 TABLET BY MOUTH EVERY DAY IN THE MORNING 90 Tablet 12/09/2023 Active Atorvastatin Calcium 10 MG Oral Tablet (Lipitor)Indicati ons:Type 1 diabetes mellitus with hemoglobin A1c goal of less than 7.0% (HCC),Dyslipidemi a, goal LDL below 70 TAKE 1 TABLET BY MOUTH EVERY DAY 90 Tablet 12/09/2023 Active Lisinopril 2.5 MG Oral Tablet (Prinivil)Indicat ions:Microalbumin uria Take 1 Tablet by mouth in the morning. 90 Tablet 3 10/01/2022 4 Discontinued Atorvastatin Calcium 10 MG Oral Tablet (Lipitor)Indicati ons:Type 1 diabetes mellitus with hemoglobin A1c goal of less than 7.0% (HCC),Dyslipidemi a, goal LDL below 70 TAKE 1 TAB BY MOUTH DAILY. 90 Tablet 3 10/01/2022 4 Discontinued documented as of this encounter (statuses as of 12/10/2023) Active Problems Problem Noted Date Diagnosed Date Type 1 diabetes mellitus wit h hemoglobin A1c goal of less than 7.0% 10/31/2015 Diabetic macular edema 01/20/2015 Diabetic retinopathy associa charis with type 1 diabetes mellitus 08/18/2014 Hypothyroidism 08/18/2014 Microalbuminuria 12/28/2012 Dyslipidemia, goal LDL below 70 12/27/2012 documented as of this encounter (statuses as of 12/10/2023) Resolved Problems Problem Noted Date Diagnosed Date [...] EFW 1550 grams (75-90%) 10. Deliver at [id number]. If poor blood sugar control may recommend delivery by 37-38 weeks after amniocentesis to prove lung maturity. ICD-10 update of inactive term documented as of this encounter (statuses as of 12/10/2023) Immunizations Name Administration Dates Next Due Hepatitis [...] encounter Miscellaneous Notes * Telephone Encounter - Bianca Sandhu - 12/10/2023 10:23 PM EDT Received message from [facility] regarding patient needing an appointment and labs. Patient was notified. Successfully contacted patient and provided [facility] message. * Telephone Encounter - Eveline Ross [facility] - 12/09/2023 8:41 AM EDTSigned Prescriptions: Disp Refills Lisinopril 2.5 MG Oral Tablet (Prinivil) 90 Tab*0 Sig: TAKE 1 TABLET BY MOUTH EVERY DAY IN THE MORNING Authorizing Provider: SALEEM BALDERAS Ordering User: EVELINE ROSS Atorvastatin Calcium 10 MG Oral Tablet (Li*90 Tab*0 Sig: TAKE 1 TABLET BY MOUTH EVERY DAY Authorizing Provider: SALEEM BALDERAS Ordering User: VALENTE ROSS * Telephone Encounter - Eveline Ross [facility] - 12/09/2023 8:40 AM EDT Provided 90 days supply with 0 refill. Per refill protocol patient should have routine on file within past year. Reviewed AMP report, Care Gaps/Health Maintenance, medications list, and for any routine labs typically ordered for this patient. Lab orders placed. Please contact patient to schedule office visit with PRIMARY CARE and advise of labs ordered for blood draw AND URINE specimen (patient will have to be able to void to provide sample). Recommend patient to fast if able for labs. Patient may still have water and regular medications. Advise to obtainlabs before requesting the next refill. Last Visit: 10/01/2022 (in office), 04/06/2020 (telemedicine) Next Visit: Visit date not found Thank you, Eveline Ross, PharmD. Clinical Pharmacist [facility] 12/09/2023, 8:40 AM documented in this encounter Plan of Treatment Scheduled Orders Name Type Priority Associated Diagnoses Orde r Schedule COMPREHENSIVE METABOLIC PANEL Lab Routine Type 1 diabetes mellitus with hemoglobin A1c goal of less than 7.0% (HCC) Expected: 12/09/2023 (Approximate), Expires: 12/08/2024 HEMOGLOBIN A1C Lab Routine Type 1 diabetes mellitus with hemoglobin A1c goal of less than 7.0% (HCC) Expected: 12/09/2023 (Approximate), Expires: 12/08/2024 LIPID PANEL WITH DIRECT LDL IF TG IS HIGH Lab Routine Type 1 diabetes mellitus with hemoglobin A1c goal of less than 7.0% (HCC) Expected: 12/09/2023 (Approximate), Expires: 12/08/2024 ALBUMIN / CREATININE RATIO, URINE Lab Routine Type 1 diabetes mellitus with hemoglobin A1c goal of less than 7.0% (HCC) Expected: 12/09/2023, Expires: 12/08/2024 TSH WITH FREE T4 IF INDICATED Lab Routine Hypothyroidism, unspecified type Expected: 12/09/2023 (Approximate), Expires: 12/08/2024 Health Maintenance Due Date Last Done Comments [...] as of this encounter Visit Diagnoses Diagnosis Hypothyroidism, unspecified type- Primary Microalbuminuria Proteinuria Type 1 diabetes mellitus with hemoglobin A1c goal of less than 7.0% (HCC) Dyslipidemia, goal LDL below 70 Other and unspecified hyperlipidemia documented in this encounter Care Teams Rn Angiography Relationship Specialty Start Date End Date Saleem Balderas DO [address] [place] [address] PCP - General Family Medicine 10/04/11 documented as of this encounter
--- NOTE | 2024-04-15 19:35 | Emergency Department Note ---
History of Present Illness General Chief Complaint: Flu Like Symptoms Stated Complaint: FLU LIKE SYMPTOMS, LT SIDE HURTS, SOB Time Seen by Provider: 04/15/24 12:30 History of Present Illness Provider Complaint: abdominal pain and flank pain Onset (ago): 1 day(s) Pain Consistency: constant Location: L flank Maximum Pain Intensity: 9 Current Pain Intensity: 9 Quality: + stabbing and + sharp Relieved By: + nothing Exacerbated By: + nothing Context: no foreign travel, no possible food poisoning, no sick contacts, no recent antibiotic use, no recent surgery/procedure or no recent injury Associated Symptoms: + nausea, + vomiting and + chills; no diarrhea, no fever, no constipation, no hematemesis, no hematuria, no syncope, no headache and no chest pain Home Medications Medication Instructions Recorded Confirmed Type atorvastatin 10 mg tablet 10 mg PO DAILY 04/15/24 04/15/24 History insulin aspart U-100 100 unit/mL 0 - 70 sliding scale dose 04/15/24 04/15/24 History subcutaneous solution continuous subcutaneous infusion CONTINOUS lisinopril 2.5 mg tablet 2.5 mg PO QAM 04/15/24 04/15/24 History Allergies Allergy/AdvReac Type Severity Reaction Status Date / Time No Known Allergies Allergy Unverified 04/15/24 15:35 Past Med/Surg History Problem List (Updated 04/15/24 @ 19:35 by Henry Stoner MD) High anion gap metabolic acidosis Hyperkalemia (Acute) DKA (diabetic ketoacidosis) (Acute) Ruptured, membranes, premature (Acute 12/29/13) Medical History No pertinent family history Type I diabetes mellitus Surgical History No pertinent past surgical history Social History Smoking Status: Never smoker Hx Alcohol Use: Yes Alcohol type: wine Hx Substance Use: No Preferred Language: Lao Communication Ability: Effective Reset Merchandiser Required: No Beliefs That Will Affect Care: None Current Living Situation: Spouse and Family Other Information That Helps Us Care for You: No Feels Safe at Home: Yes Safety Concerns: Feels Safe At This Time Assistive Devices: Glasses Physical Exam 2 Vital Signs: Vital Signs - 24 hr 04/15/24 12:17 04/15/24 12:49 04/15/24 12:49 Temperature 35.8 C L Temperature Source Temporal Artery Sc an Pulse Rate Pulse Rate [Apical ] 109 H Respiratory Rate 22 22 Respiratory Effort / Characteristics Non-Labored Sponta neous Respiratory Depth Normal Normal Respiratory Patter n Regular Blood Pressure 176/87 H Blood Pressure [Le ft Arm] 197/116 H Blood Pressure Rola n 116 Blood Pressure Rola n [Left Arm] 143 Blood Pressure Pos ition Sitting Blood Pressure Pos ition [Left Arm] Lying Pulse Oximetry 100 97 Oxygen Delivery Me thod Room Air Room Air Room Air Sepsis Recent Feve r Within 48 Hours No Sepsis New/Unexpla ined Change in Men nhan Status No Sepsis Action Take n by Nursing Physician Notified 04/15/24 13:00 04/15/24 13:05 04/15/24 13:50 Temperature 36.4 C L Temperature Source Oral Pulse Rate 109 H Pulse Rate [Apical ] 111 H Respiratory Rate 18 Respiratory Effort / Characteristics Non-Labored Respiratory Depth Normal Respiratory Patter n Blood Pressure Blood Pressure [Le ft Arm] 182/96 H Blood Pressure Rola n Blood Pressure Rola n [Left Arm] 124 Blood Pressure Pos ition Blood Pressure Pos ition [Left Arm] Pulse Oximetry 97 Oxygen Delivery Me thod Room Air Sepsis Recent Feve r Within 48 Hours Sepsis New/Unexpla ined Change in Men nhan Status Sepsis Action Take n by Nursing 04/15/24 14:41 04/15/24 14:49 Temperature Temperature Source Pulse Rate Pulse Rate [Apical ] 112 H 111 H Respiratory Rate 24 Respiratory Effort / Characteristics Respiratory Depth Respiratory Patter n Blood Pressure Blood Pressure [Le ft Arm] 137/89 Blood Pressure Rola n Blood Pressure Rola n [Left Arm] 105 Blood Pressure Pos ition Blood Pressure Pos ition [Left Arm] Pulse Oximetry 100 Oxygen Delivery Me thod Room Air Sepsis Recent Feve r Within 48 Hours Sepsis New/Unexpla ined Change in Men nhan Status Sepsis Action Take n by Nursing Physical Exam: Physical Exam GENERAL: Patient smells like acetone. HENT: Exam performed. - Head: Normocephalic and atraumatic. EYES: Conjunctivae and EOM are normal. Right eye exhibits no discharge. Left eye exhibits no discharge. No scleral icterus. NECK: Normal range of motion. Neck supple. No JVD present. CV: Tachycardic rate, regular rhythm, normal heart sounds and intact distal pulses. There is no peripheral edema. Palpable radial pulses bue. PULM/CHEST: Effort normal and breath sounds normal. No respiratory distress. No stridor. no wheezes. no rales. ABD: The abdomen is soft. There is diffuse pain on palpation of the abdomen. Insulin pump is present. NEURO: Motor and sensation grossly intact. SKIN: Skin is warm and dry. He is not diaphoretic. PSYCH: normal mood and affect. Behavior is normal. Judgment and thought content normal. Course Course 1230: The patient was evaluated in room A2. A complete history and physical exam was performed Cardiac monitoring: An order was placed for continuous cardiac monitoring. The monitor shows a rate of 110 with sinus rhythm interpreted by me 1350: Vital signs stable. Patient's glucose is elevated greater than 500. Patient's labs are hemolyzed and sodium and potassium were hemolyzed. CBC shows white blood cell count of 23.45. Will recollect as well as VBG and lactic acid. Repeat normal saline bolus ordered for the patient. 1415: Vital signs stable. Patient's lactic acid greater than 4. Most likely secondary to DKA however will treat empirically with cefepime for any underlying infection or sepsis. CT of the abdomen is negative. Urinalysis unremarkable. 1500: Vital signs stable. Potassium 6.2. Calcium gluconate ordered for the patient. Patient will be given insulin bolus as well as been on insulin drip for DKA. [facility]. Administered Medications Insulin Human Regular 250 (units/ Sodium Chloride) 250 mls @ 6.5 mls/hr IV .Q24H [facility]; Protocol Stop: 05/15/24 14:59 Last Titration: 04/15/24 19:14 Dose: 6.5 units/hr, 6.5 mls/hr Documented By: MYRANDA Co-signed By: GEN Admin: 04/15/24 15:24 Dose: 6.5 units/hr, 6.5 mls/hr Documented By: JEREMY Co-signed By: SHE Sodium Bicarbonate 100 meq/ (Sterile Water) 1,100 mls @ 200 mls/hr IV .Q5H30M [facility] Stop: 05/15/24 16:39 Last Admin: 04/15/24 16:54 Dose: 200 mls/hr Documented By: CHUCK Sodium Chloride (Nss) 1,000 mls @ 200 mls/hr IV .Q5H JADIEL Stop: 04/15/24 22:14 Last Admin: 04/15/24 17:56 Dose: 200 mls/hr Documented By: MYRANDA Insulin Aspart (Insulin Aspart Per Unit Charge) 0 units SC ACHS JADIEL Stop: 05/15/24 16:29 Last Admin: 04/15/24 17:55 Dose: Not Given Documented By: MYRANDA Discontinued Medications Al Hydrox/Mg Hydrox/Simethicone (Aluminum/Magnesium Susp 30 Ml Udc) 15 ml PO NOW STA Stop: 04/15/24 14:07 Last Admin: 04/15/24 14:12 Dose: 15 ml Documented By: BRAEDEN Sodium Chloride (Nss) 1,000 mls @ 999 mls/hr IV .Q1H1M ONE Stop: 04/15/24 13:32 Last Infusion: 04/15/24 13:50 Dose: Infused Documented By: Admin: 04/15/24 12:48 Dose: 999 mls/hr Documented By: BRAEDEN Sodium Chloride (Nss) 1,000 mls @ 999 mls/hr IV .Q1H1M ONE Stop: 04/15/24 14:47 Last Infusion: 04/15/24 15:20 Dose: Infused Documented By: Admin: 04/15/24 14:01 Dose: 999 mls/hr Documented By: BRAEDEN Cefepime HCl (Maxipime 2000mg) 2,000 mg in 20 mls @ 5 mls/min IV NOW STA; Protocol Stop: 04/15/24 14:10 Last Admin: 04/15/24 14:12 Dose: 5 mls/min Documented By: BRAEDEN Calcium Gluconate () 1,000 mg in 60 mls @ 240 mls/hr IV NOW STA Stop: 04/15/24 15:12 Last Infusion: 04/15/24 15:33 Dose: Infused Documented By: Admin: 04/15/24 15:17 Dose: 240 mls/hr Documented By: JEREMY Vancomycin HCl 1,250 mg/ (Sodium Chloride) 525 mls @ 200 mls/hr IV NOW ONE Stop: 04/15/24 18:08 Last Infusion: 04/15/24 18:37 Dose: Infused Documented By: Admin: 04/15/24 15:59 Dose: 200 mls/hr Documented By: JEREMY Sodium Chloride (Nss) 1,000 mls @ 999 mls/hr IV .Q1H1M ONE Stop: 04/15/24 16:39 Last Infusion: 04/15/24 16:55 Dose: Infused Documented By: Admin: 04/15/24 15:54 Dose: 999 mls/hr Documented By: JEREMY Piperacillin Sod/Tazobactam Sod (Zosyn) 4.5 gm in 100 mls @ 200 mls/hr IV NOW STA; Protocol Stop: 04/15/24 18:03 Last Infusion: 04/15/24 18:27 Dose: Infused Documented By: Admin: 04/15/24 17:57 Dose: 200 mls/hr Documented By: MYRANDA Insulin Human Regular (Novolin-R Bolus From Bag) 6.5 units IV ONE ONE Stop: 04/15/24 15:16 Last Admin: 04/15/24 15:32 Dose: 6.5 units Documented By: JEREMY Co-signed By: SHE Mendez (Stat Iv Infusion Titration Per Protocol) 1 each N/A NOW STA Stop: 04/15/24 14:59 Last Admin: 04/15/24 15:34 Dose: Not Given Documented By: JEREMY Mendez (Hhs Goal Range 250-350 Mg/Dl) 1 each N/A ONE ONE Stop: 04/15/24 14:59 Last Admin: 04/15/24 16:26 Dose: Not Given Documented By: JEREMY Mendez (Icu Protocol For Hyperglycemia) 1 each N/A ACHS JADIEL Stop: 04/17/24 16:29 Last Admin: 04/15/24 17:30 Dose: Not Given Documented By: MYRANDA Morphine Sulfate (Morphine Sulfate 2 Mg/Ml Carp) 2 mg IV NOW STA Stop: 04/15/24 14:07 Last Admin: 04/15/24 14:12 Dose: 2 mg Documented By: BRAEDEN Sodium Bicarbonate (Sodium Bicarb 8.4% Inj 50 Meq/50 Ml Syr) 100 meq IV NOW STA Stop: 04/15/24 15:40 Last Admin: 04/15/24 15:50 Dose: 100 meq Documented By: JEREMY Sodium Bicarbonate (Sodium Bicarb 8.4% Inj 50 Meq/50 Ml Syr) Confirm Administered Dose 50 meq IV .STK-MED ONE Stop: 04/15/24 15:49 Last Admin: 04/15/24 16:06 Dose: Not Given Documented By: JEREMY Medical Decision Making Laboratory Data Attestation: I reviewed the patient's lab results. 04/15/24 15:29 04/15/24 15:29 Lab Results 04/15/24 04/15/24 04/15/24 Range/Units 12:24 12:41 12:43 WBC 23.45 H (4.8-10.8) K/ul RBC 5.47 H (4.20-5.40) M/uL Hgb 16.5 H (12.0-16.0) g/dl Hct 51.9 H (37.0-47.0) % MCV 94.9 (80.0-100.0) fL MCH 30.2 (25.0-34.0) pg MCHC 31.8 L (32.0-36.0) g/dL RDW Std Deviation 40.9 (36.4-46.3) fL RDW Coeff of Rajni 11.6 (11.5-14.5) % Plt Count 413 H (130-400) K/uL MPV 10.6 (9.4-12.4) fL Neutrophils % (Manual) 91 % Lymphocytes % (Manual) 5 % Monocytes % (Manual) 4 % Neutrophils # (Manual) 21.34 H (1.40-6.50) K/uL Total Absolute Neuts 21.34 H (1.4-6.5) K/uL Lymphocytes # (Manual) 1.17 L (1.2-3.4) K/uL Total Abs Lymphocytes 1.17 L (1.2-3.4) K/uL Monocytes # (Manual) 0.94 H (0.11-0.59) K/uL RBC Morphology PT (9.0-12.0) Seconds INR (0.9-1.1) APTT (21-31) Seconds PTT Ratio ABG pH (7.35-7.45) ABG pCO2 (35-46) mmHg ABG pO2 (80-95) mmHg ABG HCO3 ABG O2 Saturation (90-95) % ABG Base Excess Brady Test (Pos) VBG pH (7.36-7.41) VBG pCO2 (38-50) mmHg VBG pO2 mmHg VBG HCO3 VBG O2 Saturation % VBG Base Excess Oxygen Given Sodium TNP Potassium TNP Chloride 98 (98-107) mmol/L Carbon Dioxide 5 L* (21-32) mmol/L Anion Gap TNP BUN 23 (6-23) mg/dl Creatinine 1.20 (0.6-1.2) mg/dl Est Cr Clr Drug Dosing 56.5 ml/min eGFR 59.42 BUN/Creatinine Ratio 19.2 (10-20) Glucose 543 H* (70-99(Fasting)) mg/dl POC Glucose 443 H* 480 H* (70-99) mg/dl Estimat Average Glucose mg/dl Hemoglobin A1c (4.5-5.6) % Lactate (0.4-2.0) mmol/L Calcium 9.0 (8.6-10.3) mg/dl Phosphorus (2.5-4.9) mg/dl Magnesium (1.7-2.4) mg/dl Total Bilirubin 0.4 (0.2-1.0) mg/dl Direct Bilirubin TNP AST TNP ALT 30 (7-52) U/L Alkaline Phosphatase 160 H (34-104) U/L Total Protein 9.8 H (6.0-8.3) gm/dl Albumin 5.0 (3.4-5.0) gm/dl Globulin (2.5-4.0) gm/dl Albumin/Globulin Ratio (0.9-2) Lipase 28 (11-82) U/L Urine Color Yellow Urine Appearance Clear (Clear) Urine pH 5.0 (4.5-7.5) Ur Specific [place] 1.025 (1.000-1.030) Urine Protein 2+ H (Negative) Urine Glucose (UA) 2+ H (Negative) Urine Ketones 4+ H (Negative) Urine Blood Trace H (Negative) Urine Nitrite Negative (Negative) Urine Bilirubin Negative (Negative) Urine Urobilinogen Negative (Negative) Ur Leukocyte Esterase Negative (Negative) Urine WBC (Auto) 0-5 (0-5) /hpf Urine RBC (Auto) 0-2 (0-2) /hpf U Hyaline Cast (Auto) 6-10 H (0-2) /lpf U Epithel Cells (Auto) 0-2 (0-2) /hpf Urine Bacteria (Auto) None Seen (None Seen) Urine Yeast Present A (None Prsent) 04/15/24 04/15/24 04/15/24 Range/Units 13:09 13:55 15:15 WBC (4.8-10.8) K/ul RBC (4.20-5.40) M/uL Hgb (12.0-16.0) g/dl Hct (37.0-47.0) % MCV (80.0-100.0) fL MCH (25.0-34.0) pg MCHC (32.0-36.0) g/dL RDW Std Deviation (36.4-46.3) fL RDW Coeff of Rajni (11.5-14.5) % Plt Count (130-400) K/uL MPV (9.4-12.4) fL Neutrophils % (Manual) % Lymphocytes % (Manual) % Monocytes % (Manual) % Neutrophils # (Manual) (1.40-6.50) K/uL Total Absolute Neuts (1.4-6.5) K/uL Lymphocytes # (Manual) (1.2-3.4) K/uL Total Abs Lymphocytes (1.2-3.4) K/uL Monocytes # (Manual) (0.11-0.59) K/uL RBC Morphology PT 10.7 (9.0-12.0) Seconds INR 1.0 (0.9-1.1) APTT 23 (21-31) Seconds PTT Ratio 0.9 ABG pH < 7.00 L* (7.35-7.45) ABG pCO2 14 L (35-46) mmHg ABG pO2 131 H (80-95) mmHg ABG HCO3 TNP ABG O2 Saturation 100.0 H (90-95) % ABG Base Excess TNP Brady Test Pos (Pos) VBG pH < 7.00 L (7.36-7.41) VBG pCO2 30 L (38-50) mmHg VBG pO2 95 mmHg VBG HCO3 TNP VBG O2 Saturation 97.0 % VBG Base Excess TNP Oxygen Given RA Sodium 128 L Potassium 6.2 H* Chloride (98-107) mmol/L Carbon Dioxide (21-32) mmol/L Anion Gap BUN (6-23) mg/dl Creatinine (0.6-1.2) mg/dl Est Cr Clr Drug Dosing ml/min eGFR BUN/Creatinine Ratio (10-20) Glucose (70-99(Fasting)) mg/dl POC Glucose (70-99) mg/dl Estimat Average Glucose mg/dl Hemoglobin A1c (4.5-5.6) % Lactate 4.8 H* (0.4-2.0) mmol/L Calcium (8.6-10.3) mg/dl Phosphorus (2.5-4.9) mg/dl Magnesium (1.7-2.4) mg/dl Total Bilirubin (0.2-1.0) mg/dl Direct Bilirubin 0.1 AST 34 ALT (7-52) U/L Alkaline Phosphatase (34-104) U/L Total Protein (6.0-8.3) gm/dl Albumin (3.4-5.0) gm/dl Globulin (2.5-4.0) gm/dl Albumin/Globulin Ratio (0.9-2) Lipase (11-82) U/L Urine Color Urine Appearance (Clear) Urine pH (4.5-7.5) Ur Specific [place] (1.000-1.030) Urine Protein (Negative) Urine Glucose (UA) (Negative) Urine Ketones (Negative) Urine Blood (Negative) Urine Nitrite (Negative) Urine Bilirubin (Negative) Urine Urobilinogen (Negative) Ur Leukocyte Esterase (Negative) Urine WBC (Auto) (0-5) /hpf Urine RBC (Auto) (0-2) /hpf U Hyaline Cast (Auto) (0-2) /lpf U Epithel Cells (Auto) (0-2) /hpf Urine Bacteria (Auto) (None Seen) Urine Yeast (None Prsent) 04/15/24 04/15/24 Range/Units 15:25 15:29 WBC 33.59 H* (4.8-10.8) K/ul RBC 4.80 (4.20-5.40) M/uL Hgb 14.6 (12.0-16.0) g/dl Hct 46.2 (37.0-47.0) % MCV 96.3 (80.0-100.0) fL MCH 30.4 (25.0-34.0) pg MCHC 31.6 L (32.0-36.0) g/dL RDW Std Deviation 41.1 (36.4-46.3) fL RDW Coeff of Rajni 11.6 (11.5-14.5) % Plt Count 391 (130-400) K/uL MPV 10.5 (9.4-12.4) fL Neutrophils % (Manual) 91 % Lymphocytes % (Manual) 3 % Monocytes % (Manual) 6 % Neutrophils # (Manual) 30.57 H (1.40-6.50) K/uL Total Absolute Neuts 30.57 H (1.4-6.5) K/uL Lymphocytes # (Manual) 1.01 L (1.2-3.4) K/uL Total Abs Lymphocytes 1.01 L (1.2-3.4) K/uL Monocytes # (Manual) 2.02 H (0.11-0.59) K/uL RBC Morphology Unremarkable PT (9.0-12.0) Seconds INR (0.9-1.1) APTT (21-31) Seconds PTT Ratio ABG pH (7.35-7.45) ABG pCO2 (35-46) mmHg ABG pO2 (80-95) mmHg ABG HCO3 ABG O2 Saturation (90-95) % ABG Base Excess Brady Test (Pos) VBG pH (7.36-7.41) VBG pCO2 (38-50) mmHg VBG pO2 mmHg VBG HCO3 VBG O2 Saturation % VBG Base Excess Oxygen Given Sodium 131 L Potassium 6.4 H* Chloride 108 H (98-107) mmol/L Carbon Dioxide 4 L* (21-32) mmol/L Anion Gap 19 H BUN 23 (6-23) mg/dl Creatinine 1.12 (0.6-1.2) mg/dl Est Cr Clr Drug Dosing 60.6 ml/min eGFR 64.55 BUN/Creatinine Ratio 20.5 H (10-20) Glucose 511 H* (70-99(Fasting)) mg/dl POC Glucose 477 H* (70-99) mg/dl Estimat Average Glucose 252 mg/dl Hemoglobin A1c 10.4 H (4.5-5.6) % Lactate (0.4-2.0) mmol/L Calcium 8.0 L (8.6-10.3) mg/dl Phosphorus 5.2 H (2.5-4.9) mg/dl Magnesium 2.3 (1.7-2.4) mg/dl Total Bilirubin 0.3 (0.2-1.0) mg/dl Direct Bilirubin AST 29 ALT 25 (7-52) U/L Alkaline Phosphatase 123 H (34-104) U/L Total Protein 8.1 (6.0-8.3) gm/dl Albumin 4.4 (3.4-5.0) gm/dl Globulin 3.7 (2.5-4.0) gm/dl Albumin/Globulin Ratio 1.2 (0.9-2) Lipase (11-82) U/L Urine Color Urine Appearance (Clear) Urine pH (4.5-7.5) Ur Specific [place] (1.000-1.030) Urine Protein (Negative) Urine Glucose (UA) (Negative) Urine Ketones (Negative) Urine Blood (Negative) Urine Nitrite (Negative) Urine Bilirubin (Negative) Urine Urobilinogen (Negative) Ur Leukocyte Esterase (Negative) Urine WBC (Auto) (0-5) /hpf Urine RBC (Auto) (0-2) /hpf U Hyaline Cast (Auto) (0-2) /lpf U Epithel Cells (Auto) (0-2) /hpf Urine Bacteria (Auto) (None Seen) Urine Yeast (None Prsent) Imaging Data Attestation: I personally reviewed and interpreted this imaging study as follows: My Impression: Chest x-ray negative. Airway clear. No pneumothorax. No consolidation. No cardiomegaly or cephalization.. No free air under the diaphragm. No fractures of the skeletal structures. Radiologist's Impression: Abdomen/Pelvis CT 04/15/24 12:[address] WITHOUT CONTRAST CT DOSE: 734.05 mGy.cm HISTORY: L flank pain TECHNIQUE: Multiaxial CT images of the abdomen and pelvis were performed without contrast. A dose lowering technique was utilized adhering to the principles of ALARA. COMPARISON STUDY: None FINDINGS: ABDOMEN: There is mild fatty liver. Otherwise the liver, gallbladder, spleen, pancreas, and adrenal glands have an unremarkable non-IV contrasted appearance. The kidneys show no hydronephrosis or calculi. No abdominal aortic aneurysm. Pelvis: Urinary bladder is distended. There is a 3 cm cyst at the right ovary. Otherwise uterus and adnexa are grossly unremarkable. There is moderate retained stool. No bowel inflammation or obstruction. Normal appendix. No free fluid, free air, or abscess. No enlarged adenopathy. Osseous structures: No acute osseous findings. IMPRESSION: 1. No acute findings. 2. Otherwise as described. ACT 112: Negative or not required by law. The above report was generated using voice recognition software. It may contain grammatical, syntax or spelling errors. Electronically signed by: Dev Ram M.D. 04/15/2024 1:16 PM Chest X-Ray 04/15/24 12:32 XR chest 1V portable CLINICAL HISTORY: sob COMPARISON STUDY: 03/29/2011 FINDINGS: Single view chest demonstrates no acute cardiopulmonary process. There is no infiltrate or pleural effusion. There is no pneumothorax. The heart and pulmonary vascularity are unremarkable. IMPRESSION: Negative single view chest ACT 112: Negative or not required by law. Electronically signed by: Savanna Webb M.D. 04/15/2024 1:14 PM ECG Data Attestation: I personally reviewed and interpreted this ECG as follows: Rate (beats per minute): 112 Rhythm: sinus tachycardia Findings: + prolonged QT (505); no ST depression or no ST elevation MDM Narrative 1230: The patient was evaluated in room A2. A complete history and physical exam was performed Cardiac monitoring: An order was placed for continuous cardiac monitoring. The monitor shows a rate of 110 with sinus rhythm interpreted by me 1350: Vital signs stable. Patient's glucose is elevated greater than 500. Patient's labs are hemolyzed and sodium and potassium were hemolyzed. CBC shows white blood cell count of 23.45. Will recollect as well as VBG and lactic acid. Repeat normal saline bolus ordered for the patient. 1415: Vital signs stable. Patient's lactic acid greater than 4. Most likely secondary to DKA however will treat empirically with cefepime for any underlying infection or sepsis. CT of the abdomen is negative. Urinalysis unremarkable. 1500: Vital signs stable. Potassium 6.2. Calcium gluconate ordered for the patient. Patient will be given insulin bolus as well as been on insulin drip for DKA. [facility]. Impression & Plan DKA (diabetic ketoacidosis), Hyperkalemia Critical Care Time Critical Care Time: Yes Total Critical Care Time: 83 I have personally spent greater than 83 minutes of critical care time in the direct management of this patient. This includes bedside care, interpretation of diagnostic studies, and testing, discussion with consultants, patient, and family members, and other required patient management activities. This 83 minutes is in excess of all separately billable procedures. Discharge Plan Visit Data Chief Complaint: Flu Like Symptoms Stated Complaint: FLU LIKE SYMPTOMS, LT SIDE HURTS, SOB ED Provider: Henry Stoner Discharge Problem: DKA (diabetic ketoacidosis), Hyperkalemia Patient Disposition: Admitted As Inpatient Discharge Instructions Interventions: ED Discharge Assessment Last Done: 04/15/24 16:33
[2024-04-15 20:38] LABS: Calcium 6.6 mg/dl (8.6-10.3); Creatinine Clr Calc Pharmacy 68.4 ml/min; Magnesium 1.9 mg/dl (1.7-2.4); Phosphorus 1.5 mg/dl (2.5-4.9); Potassium 3.8 mmol/L (3.5-5.1)
[2024-04-15] MEDS ORDERED: POTASSIUM PHOS 3 MMOL/1 ML INFUSION IV STA (20:41)
[2024-04-15] MEDS ORDERED: POTASSIUM CHLORIDE 40 MEQ in D5W AND 1/2NSS 1,000 ML IV SCH (20:45)
[2024-04-15] MEDS: MAGNESIUM SULFATE / D5W 1 GM/100 ML BAG IV SCH (21:56)
[2024-04-15] MEDS: D5W AND 1/2NSS + 20MEQ KCL 20 MEQ/1,000 ML BAG IV SCH (21:57)
[2024-04-15] MEDS: POTASSIUM PHOSPHATE 15 MMOL in SODIUM CHLORIDE 0.9% 250 ML IV ONE (21:59)
[2024-04-15] MEDS: HEPARIN SOD 5,000 UNIT/0.5 ML VIAL SQ SCH (22:00)
[2024-04-15] MEDS: PIPERACILLIN/TAZOBACTAM 4.5 GM/100 ML BAG IV SCH (23:38)
[2024-04-15 23:55] LABS: BUN Creatinine Ratio 14.7 (10-20); Magnesium 1.9 mg/dl (1.7-2.4); Potassium 6.2 mmol/L (3.5-5.1)
[2024-04-16] MEDS: D5W AND 1/2NSS 1,000 ML IV SCH
[2024-04-16 01:30] LABS: BUN Creatinine Ratio 14.1 (10-20); Calcium 7.9 mg/dl (8.6-10.3); Creatinine Clr Calc Pharmacy 69.1 ml/min; Potassium 4.1 mmol/L (3.5-5.1)
[2024-04-16 03:52] LABS: Hematocrit (blood only) 37.3 % (37.0-47.0); Hemoglobin 12.9 g/dl (12.0-16.0); Mean Corpuscular Hemoglobin 30.1 pg (25.0-34.0); Mean Corpuscular Hgb Conc 34.6 g/dL (32.0-36.0); Mean Corpuscular Volume 86.9 fL (80.0-100.0); Mean Platelet Volume 10.1 fL (9.4-12.4); Platelet Count 232 K/uL (130-400); RDW Standard Deviation 38.4 fL (36.4-46.3); Red Blood Count 4.29 M/uL (4.20-5.40); White Blood Count 22.93 K/ul (4.8-10.8)
[2024-04-16 04:05] LABS: BUN Creatinine Ratio 11.6 (10-20); Magnesium 2.3 mg/dl (1.7-2.4); Potassium 3.3 mmol/L (3.5-5.1)
[2024-04-16] MEDS ORDERED: POTASSIUM PHOS 3 MMOL/1 ML INFUSION IV STA (04:09)
[2024-04-16 04:44] LABS: Basophils # (auto) 0.03 K/uL (0.00-0.20); Basophils % (auto) 0.1 %; Immature Granulocytes # (auto) 0.17 K/uL (0.01-0.20); Immature Granulocytes % (auto) 0.7 %; Lymphocytes # (auto) 1.44 K/uL (1.20-3.40); Lymphocytes % (auto) 6.3 %; Monocytes % (auto) 5.7 %; Neutrophils # (auto) 19.99 K/uL (1.40-6.50); Neutrophils % (auto) 87.2 %
[2024-04-16] MEDS: POTASSIUM PHOSPHATE 21 MMOL in SODIUM CHLORIDE 0.9% 500 ML IV ONE (04:51)
[2024-04-16] MEDS: POTASSIUM CHLORIDE 20 MEQ/15 ML UDC PO STA (05:32)
[2024-04-16] MEDS: COUGH DROP (SUGAR FREE) LOZ 24 LOZ/1 BOX BUCCAL PRN (05:36)
[2024-04-16 07:10] LABS: Toxic Vacuolation 1+
[2024-04-16 07:47] LABS: BUN Creatinine Ratio 12.6 (10-20); Calcium 7.5 mg/dl (8.6-10.3); Creatinine Clr Calc Pharmacy 79.1 ml/min; Magnesium 2.2 mg/dl (1.7-2.4); Phosphorus 1.4 mg/dl (2.5-4.9); Potassium 4.1 mmol/L (3.5-5.1)
--- NOTE | 2024-04-16 10:17 | Critical Care Progress Note ---
Date of Service April 16, 2024 Assessment & Plan (1) DKA (diabetic ketoacidosis): (2) Hyperkalemia: (3) High anion gap metabolic acidosis: (4) Type I diabetes mellitus: Plan Reason Critically Ill: 38-year-old female coming to the hospital for not feeling well. Admitted to the ICU for DKA Past medical history: Type 1 diabetes Neuro - [facility] ICU: Negative Cardiac - -- Tachycardia Likely secondary to volume depletion as well as severe acidosis Patient also has baseline tachycardia, not on any medications at home EKG 04/15/2024 12:37 PM: Sinus tachycardia, normal axis, no ST-T wave changes appreciated --Prolonged QTc Avoid QT prolonging medication -- Dyslipidemia On atorvastatin at home Respiratory - -- Tachypneic Likely compensation to metabolic acidosis Saturating well on room air GI - -- Mildly elevated alk phos with normal AST ALT and bilirubin RENAL/LYTES - -- S/p HAGMA Delta-delta: Pure anion gap Likely sec to diabetic ketoacidosis with lactic acidosis Monitor Continue with insulin drip until anion gap closes Decreasing blood glucose no more than 100 in an hour Replace potassium IV when potassium level between 3.3-5.3 BMP every 4 hours Continue with IV fluids ENDO - -- ICU hyperglycemia protocol HEME - -- Monitor H&H ID - -- Leukocytosis Likely reactive to DKA Continue to monitor Chest x-ray does not show any pulmonary opacities --Prophylaxis VTE: Heparin GI: None Lines: Peripheral Diet: Diabetic Plan: In/out: +6.6 L, urine output 3401 Phosphorus being replaced Anion gap is closed. Will bridged to subcu insulin and probably her insulin pump Will need diabetic education given the HbA1c was elevated. If the patient is able to tolerate diet then okay to downgrade the patient later today. She is spiking fever of 38. No clear source of infection. UA is growing group B strep but patient is asymptomatic and it is only growing 50,000 colonies. Currently on Zosyn, can consider changing it to Rocephin for total of 5 days. Case was discussed with primary team I have personally spent 61 minutes of critical care time in the direct management of this patient. This is a life/limb threatening event. This includes time spent evaluating patient, direct bedside care, chart review, placing orders, interpretation of diagnostic studies, discussion with consultants, patient, and family members, as well as other required patient management activities. This time is exclusive of all separately billable procedures, and teaching time and separate from and in addition to any other critical care service time. Admission and Anticipated Discharge Date Admission Date: April 15, 2024 Subjective Patient seen and examined at bedside. No acute distress, no adverse events overnight Patient was saturating well on room air. She denied any abdominal pain. No nausea or vomiting No shortness of breath, chest pain She stated she is feeling much better compared to yesterday when she came to the hospital Review of Systems 2 Review of Systems: All systems reviewed & are unremarkable except as noted in Subjective Physical Exam 2 Physical Exam: Constitutional: No acute distress HEENT: EOMI, PERRLA Respiratory system: Good air entry bilaterally, no wheeze, no rhonchi, minimal crackles bilateral lower lobes CVS: S1-S2 positive, no murmurs or gallops, tachycardia Abdomen: Soft, nontender, nondistended, positive bowel sounds x4 Extremities: +2 pulses bilaterally radialis/ dorsalis pedis, no cyanosis, no edema Neuro: Awake alert oriented x3 Psych: Normal mood and affect G/U: Positive Leonard Skin: no rashes, warm and dry Lymphatic: no cervical or axillary lymphadenopathy Results & Data Results & Data Vital Signs (Past 12 Hours) Vital Signs Temp Pulse Resp BP Pulse Ox O2 Del Method 04/16/24 08:00 111 H 04/16/24 07:00 37.6 C H 113 H 21 99 Room Air 04/16/24 07:00 133/82 04/16/24 06:00 37.7 C H 113 H 19 99 04/16/24 05:39 37.7 C H 110 H 19 99 04/16/24 05:00 37.7 C H 110 H 17 99 04/16/24 05:00 146/85 H 04/16/24 05:00 146/85 H 04/16/24 05:00 146/85 H 04/16/24 04:30 37.7 C H 110 H 16 99 04/16/24 04:09 37.7 C H 109 H 17 99 04/16/24 04:00 124/71 04/16/24 04:00 124/71 04/16/24 03:57 37.7 C H 109 H 15 99 04/16/24 03:30 37.7 C H 113 H 21 100 04/16/24 03:03 37.7 C H 110 H 15 99 04/16/24 03:00 132/80 04/16/24 02:54 37.8 C H 112 H 16 100 04/16/24 02:33 37.8 C H 112 H 16 100 04/16/24 01:30 37.9 C H 115 H 18 99 04/16/24 01:00 130/76 04/16/24 01:00 130/76 04/16/24 01:00 130/76 04/16/24 00:57 37.9 C H 117 H 17 100 04/16/24 00:33 37.9 C H 119 H 26 H 99 04/16/24 00:00 126 H 04/16/24 00:00 136/76 04/15/24 23:57 38.0 C H 123 H 22 100 04/15/24 23:39 38.0 C H 123 H 23 100 04/15/24 23:24 38.0 C H 122 H 19 100 04/15/24 23:01 135/93 04/15/24 23:01 135/93 04/15/24 22:48 38.0 C H 126 H 21 100 04/15/24 22:33 38.0 C H 126 H 20 99 04/15/24 22:21 38.0 C H 128 H 21 100 Laboratory Results 04/16/24 03:21 04/16/24 07:03 Coding Level of Care Code 25600 SUB INP/OBS CARE 3/50MIN Diagnoses DKA (diabetic ketoacidosis) E11.10 Hyperkalemia E87.5 High anion gap metabolic acidosis E87.29 Type I diabetes mellitus E10.9
[2024-04-16] MEDS: LANTUS PER UNIT CHARGE SC ONE (10:55)
--- NOTE | 2024-04-16 11:16 | Hospitalist Progress Note ---
Date of Service April 16, 2024 Assessment & Plan (1) DKA (diabetic ketoacidosis): Plan: -noted to have pH below 7 on arrival to ED, severe DKA -much improved, insulin now shut off, gap closed x2 -feeling well overall, suspect infection as source of DKA -has been having some abdominal pain and SOB past few days as possible sources -UA is growing Strep B, will treat empirically Plan: -stool and respiratory biofire -treat UA with 5 days of ceftriaxone, discussed with ICU attending -f/u culture results -PT/OT ordered (2) Type I diabetes mellitus: Plan: -should follow up with endocrinology outpatient -pharmacy consult for glycemic management (3) Hyperkalemia: Plan: -resolved (4) Leukocytosis: Plan: -unclear source, but infection is likely cause of DKA Plan: -see above (5) Constipation: Plan: -likely 2/2 dehydration Plan: -miralax prn Plan Feeding/fluids: progressive, clear liquids currently Analgesia: na for now Sedation: na Thromboprophylaxis: heparin Head up position: 30 degrees Ulcer prophylaxis: na Glycemic control: per DKA protocol Spontaneous breathing trial: room air Bowel care: start miralax prn Indwelling catheter removal: na Deescalation of antibiotics: stop vanc/zosyn, deescalate to ceftriaxone I spent a total of 60 minutes in direct patient care, including [id number] time with the patient and/or family, reviewing medical records, ordering and reviewing diagnostic tests, and coordinating care with other healthcare providers. This time includes: history taking, physical examination, medical decision making, counseling, ECG interpretation, imaging interpretation, lab interpretation, orders, and education, excluding time spent in the performance of separately billed services. Admission and Anticipated Discharge Date Admission Date: April 15, 2024 Subjective 38-year-old female with past medical history of type 1 diabetes who presented for failure to thrive at home. In the ED, noted to have pH lower than 7, noted to be in severe DKA, admitted to the ICU for further management. In the ICU, patient received insulin, bicarb drip, fluids and patient improved rapidly. Patient seen and examined at bedside. She states that for the past week she has been feeling ill, with a little bit of abdominal pain, and a cold/cough. She said it is just steadily gotten worse over the past few days. She has an insulin pump that she believes is working appropriately. Feels little weaker than normal, would like some physical therapy as well. Feels well supported at home. Review of Systems Review of Systems: CONSTITUTIONAL: Patient denies fevers, chills, sweats and weight changes. EYES: Patient denies any visual symptoms. EARS, NOSE, AND THROAT: No difficulties with hearing. No symptoms of rhinitis or sore throat. CARDIOVASCULAR: Patient denies chest pains, palpitations, orthopnea and paroxysmal nocturnal dyspnea. RESPIRATORY: No dyspnea on exertion, no wheezing or cough. GI: No nausea, vomiting, diarrhea, constipation, abdominal pain, hematochezia or melena. : No urinary hesitancy or dribbling. No nocturia or urinary frequency. No abnormal urethral discharge. MUSCULOSKELETAL: weakness, fatigue NEUROLOGIC: No chronic headaches, no seizures. Patient denies numbness, tingling or weakness. PSYCHIATRIC: Patient denies problems with mood disturbance. No problems with anxiety. ENDOCRINE: No excessive urination or excessive thirst. DERMATOLOGIC: Patient denies any rashes or skin changes. Physical Exam Physical Exam: Gen: A&O 3 NAD HEENT: NCAT, EOMI, not icteric. External ears normal. No rhinorrhea. Moist mucous membranes. Neck: Supple, full range of motion, no observable masses, No meningeal sign. Lungs: No Respiratory distress. CV: RRR, no edema. Abdomen: Soft, nondistended, No rebound tenderness. MSK: No joint swelling, no redness. Skin: No rashes, petechiae, lesions. Normal color per patient. Neuro: Normal Gait, Grossly intact. Psych: Appropriate for situation. Results & Data Results & Data Vital Signs (Past 12 Hours) Vital Signs Temp Pulse Resp BP Pulse Ox O2 Del Method 04/16/24 08:00 111 H 04/16/24 07:00 37.6 C H 113 H 21 99 Room Air 04/16/24 07:00 133/82 04/16/24 06:00 37.7 C H 113 H 19 99 04/16/24 05:39 37.7 C H 110 H 19 99 04/16/24 05:00 37.7 C H 110 H 17 99 04/16/24 05:00 146/85 H 04/16/24 05:00 146/85 H 04/16/24 05:00 146/85 H 04/16/24 04:30 37.7 C H 110 H 16 99 04/16/24 04:09 37.7 C H 109 H 17 99 04/16/24 04:00 124/71 04/16/24 04:00 124/71 04/16/24 03:57 37.7 C H 109 H 15 99 04/16/24 03:30 37.7 C H 113 H 21 100 04/16/24 03:03 37.7 C H 110 H 15 99 04/16/24 03:00 132/80 04/16/24 02:54 37.8 C H 112 H 16 100 04/16/24 02:33 37.8 C H 112 H 16 100 04/16/24 01:30 37.9 C H 115 H 18 99 04/16/24 01:00 130/76 04/16/24 01:00 130/76 04/16/24 01:00 130/76 04/16/24 00:57 37.9 C H 117 H 17 100 04/16/24 00:33 37.9 C H 119 H 26 H 99 04/16/24 00:00 126 H 04/16/24 00:00 136/76 04/15/24 23:57 38.0 C H 123 H 22 100 04/15/24 23:39 38.0 C H 123 H 23 100 04/15/24 23:24 38.0 C H 122 H 19 100 Laboratory Results - Personally reviewed, noted to have ABG in ED of pH below 7, with much improved VBG after bicarbonate and insulin infusion, leukocytosis of 23, EKG personally interpreted with the prolonged QTc, imaging unremarkable for clear source of possible infection Medications Administered Heparin Sodium (Porcine) (Heparin Sod 5,000 Unit/0.5 Ml Vial) 5,000 units SQ Q8 JADIEL Stop: 05/15/24 21:59 Last Admin: 04/16/24 05:32 Dose: 5,000 units Documented By: Admin: 04/15/24 22:00 Dose: 5,000 units Documented By: GEN Insulin Human Regular 250 (units/ Sodium Chloride) 250 mls @ 12.8 mls/hr IV .[id number] JADIEL; Protocol Stop: 05/15/24 14:59 Last Titration: 04/16/24 10:25 Dose: 12.8 units/hr, 12.8 mls/hr Documented By: VENANCIOL Co-signed By: GPF Titration: 04/16/24 09:25 Dose: 10.7 units/hr, 10.7 mls/hr Documented By: KJL Co-signed By: NMK Titration: 04/16/24 08:25 Dose: 8.9 units/hr, 8.9 mls/hr Documented By: KJL Co-signed By: NMK Titration: 04/16/24 07:25 Dose: 8.9 units/hr, 8.9 mls/hr Documented By: KJL Co-signed By: NMK Titration: 04/16/24 06:53 Dose: 8.9 units/hr, 8.9 mls/hr Documented By: MNM Co-signed By: KJL Titration: 04/16/24 06:46 Dose: 8.9 units/hr, 8.9 mls/hr Documented By: MNM Co-signed By: CP Titration: 04/16/24 05:30 Dose: 7.4 units/hr, 7.4 mls/hr Documented By: MNM Co-signed By: CP Titration: 04/16/24 04:48 Dose: 7.4 units/hr, 7.4 mls/hr Documented By: MNM Co-signed By: CP Titration: 04/16/24 03:25 Dose: 6.2 units/hr, 6.2 mls/hr Documented By: MNM Co-signed By: BK Titration: 04/16/24 02:30 Dose: 6.2 units/hr, 6.2 mls/hr Documented By: MNM Co-signed By: CP Titration: 04/16/24 01:30 Dose: 5.2 units/hr, 5.2 mls/hr Documented By: MNM Co-signed By: CP Titration: 04/16/24 00:41 Dose: 5.2 units/hr, 5.2 mls/hr Documented By: MNM Co-signed By: CP Titration: 04/15/24 23:25 Dose: 5.2 units/hr, 5.2 mls/hr Documented By: MNM Co-signed By: CP Titration: 04/15/24 22:25 Dose: 5.2 units/hr, 5.2 mls/hr Documented By: GEN Co-signed By: UZMA Titration: 04/15/24 21:25 Dose: 5.2 units/hr, 5.2 mls/hr Documented By: GEN Co-signed By: UZMA Titration: 04/15/24 20:25 Dose: 6.5 units/hr, 6.5 mls/hr Documented By: GEN Co-signed By: CP Titration: 04/15/24 19:25 Dose: 6.5 units/hr, 6.5 mls/hr Documented By: GEN Co-signed By: UZMA Titration: 04/15/24 19:14 Dose: 6.5 units/hr, 6.5 mls/hr Documented By: MYRANDA Co-signed By: GEN Admin: 04/15/24 15:24 Dose: 6.5 units/hr, 6.5 mls/hr Documented By: JEREMY Co-signed By: SHE Piperacillin Sod/Tazobactam Sod (Zosyn) 4.5 gm in 100 mls @ 25 mls/hr IV Q8H JADIEL; Protocol Stop: 04/18/24 00:00 Last Admin: 04/16/24 07:29 Dose: 25 mls/hr Documented By: Infusion: 04/16/24 03:44 Dose: Infused Documented By: Admin: 04/15/24 23:38 Dose: 25 mls/hr Documented By: GEN Insulin Aspart (Insulin Aspart Per Unit Charge) 0 units SC ACHS JADIEL Stop: 05/15/24 16:29 Last Admin: 04/16/24 09:05 Dose: 4 units Documented By: MYRANDA Co-signed By: GPF Admin: 04/15/24 19:58 Dose: Not Given Documented By: Admin: 04/15/24 17:55 Dose: Not Given Documented By: MYRANDA Menthol (Cough Drop (Sugar Free) Alix 24 Alix/1 Box) 1 alix BUCCAL NOW PRN PRN Reason: Sore Throat Stop: 05/15/24 20:02 Last Admin: 04/16/24 05:36 Dose: 1 alix Documented By: GEN (1) DKA (diabetic ketoacidosis) Diabetes mellitus complication detail: without coma Diabetes mellitus type: type 1 Qualified Code(s): E10.10 - Type 1 diabetes mellitus with ketoacidosis without coma (2) Type I diabetes mellitus Diabetes mellitus complication status: with hyperglycemia Qualified Code(s): E10.65 - Type 1 diabetes mellitus with hyperglycemia (4) Leukocytosis Leukocytosis type: bandemia Qualified Code(s): D72.825 - Bandemia (5) Constipation Constipation type: slow transit constipation Qualified Code(s): K59.01 - Slow transit constipation
[2024-04-16 11:38] LABS: BUN Creatinine Ratio 10.2 (10-20); Creatinine Clr Calc Pharmacy 78.2 ml/min; Potassium 3.4 mmol/L (3.5-5.1)
[2024-04-16 11:40] LABS: Magnesium 2.1 mg/dl (1.7-2.4); Phosphorus 1.1 mg/dl (2.5-4.9)
[2024-04-16] MEDS: cefTRIAXone SODIUM 2,000 MG/50 ML BAG IV STA (11:40)
--- NOTE | 2024-04-16 11:56 | Pharmacy Report ---
Pharmacy Glycemic Short Note 2 - Date of Service April 16, 2024 - Glycemic Short BSG Results (Last 24 hours): 04/15/24 04/15/24 04/15/24 12:24 12:41 12:43 Glucose 543 H* POC Glucose 443 H* 480 H* 04/15/24 04/15/24 04/15/24 15:25 15:29 15:54 Glucose 511 H* POC Glucose 477 H* 483 H* 04/15/24 04/15/24 04/15/24 16:23 17:25 18:28 Glucose POC Glucose 443 H* 356 H* 325 H* 04/15/24 04/15/24 04/15/24 19:36 19:55 20:31 Glucose 324 H* POC Glucose 282 H 290 H 04/15/24 04/15/24 04/15/24 21:43 22:41 22:44 Glucose 423 H* POC Glucose 240 H 246 H 04/15/24 04/16/24 04/16/24 23:40 00:37 00:42 Glucose 302 H* POC Glucose 274 H 269 H 04/16/24 04/16/24 04/16/24 01:40 02:35 03:21 Glucose 322 H* POC Glucose 268 H 283 H 04/16/24 04/16/24 04/16/24 03:35 04:46 05:46 Glucose POC Glucose 270 H 294 H 264 H 04/16/24 04/16/24 04/16/24 06:44 07:03 07:24 Glucose 287 H POC Glucose 266 H 242 H 04/16/24 04/16/24 04/16/24 08:26 09:27 10:25 Glucose POC Glucose 206 H 207 H 210 H 04/16/24 04/16/24 10:53 11:30 Glucose 208 H POC Glucose 157 H OUTPATIENT ANTIDIABETIC REGIMEN: Spoke w patient 1 AM who reported the following about her Novolog insulin pump: * Basal * 1.15 units/hr continuous over 24 hours * CHO ratio * 12 g CHO/unit with breakfast * 15 g CHO/unit with lunch, dinner (doesn't check BSG at HS or have a snack. If she did, would also use this parameter) * Correction factor * 75 mg/dL/unit above 175 mg/dL * BSG's * Tend to be a little higher in the morning, hence the tighter CHO ratio * Highs can be 250-275 mg/dL * Lows usually are 150-175 mg/dL * Does not like to have lower BSG's HbA1c 10.4%, which may be explained by usual reported BSG's (above) ASSESSMENT: * 38 yo F with T1DM on Novolog pump as outpatient admitted with DKA. Etiology not likely pump related. * Discussed on ICU rounds - OK to stop dextrose-containing IV and transition to basal/bolus. * Transition to basal/bolus may be complicated by high insulin requirements at this time - drip currently running above 12 units/hr. * Will attempt transition today, but transition off may or may not be successful * Will give Lantus at slightly higher than home total daily dose PLAN FOR INPATIENT GLYCEMIC CONTROL: * Basal insulin * Lantus 32 units SQ x1 now * Anticipate transition back to home pump, possibly as early as tomorrow. Patient/family noted intent to have supplies ready tomorrow AM, if transition back to pump is appropriate at that time * Insulin drip - continue to titrate per protocol. Will reduce to 4 units/hr at 1300, as this is approximately when basal insulin will start to take effect. Will then also change goal range to 140-200 mg/dL * Bolus insulin (while drip running) * 1 unit CHO for every 13 g CHO consumed * Insulin transition parameters: * BSG less than 200 mg/dL x2 consecutive checks * Insulin drip less than 2 units/hr * Bolus insulin (anticipated regimen for after transition parameters met, but before pump resumed) * NovoLog per scale ACHS or Q6hrs while NPO, with two overnight checks * Goal Range: Low 120 mg/dL - High 160 mg/dL * Correction Factor: 65 mg/dL/unit * CHO ratio: 12 g CHO/unit with breakfast, 15 g CHO/unit with lunch, dinner, HS
[2024-04-16] MEDS ORDERED: SODIUM PHOSPHATE 3 MMOL/1 ML INFUSION IV STA (11:57)
[2024-04-16] MEDS: SODIUM PHOSPHATE 21 MMOL in SODIUM CHLORIDE 0.9% 500 ML IV ONE (12:28)
[2024-04-16] MEDS: POLYETHYLENE (MIRALAX) 17 GM PACK PO PRN (12:29)
[2024-04-16 13:16] LABS: Adenovirus PCR Not Detected (NotDetected); Bordetella parapertussis PCR Not Detected (NotDetected); Bordetella pertussis PCR Not Detected (NotDetected); Chlamydia pneumoniae PCR Not Detected (NotDetected); Coronavirus 229E PCR Not Detected (NotDetected); Coronavirus CoV-2 (COVID19)PCR Not Detected (NotDetected); Coronavirus HKU1 PCR Not Detected (NotDetected); Coronavirus NL63 PCR DETECTED (NotDetected); Coronavirus OC43PCR Not Detected (NotDetected); Human Metapneumovirus PCR Not Detected (NotDetected); Influenza A PCR Not Detected (NotDetected); Influenza B PCR Not Detected (NotDetected); Mycoplasma pneumoniae PCR Not Detected (NotDetected); Parainfluenza Virus 1 PCR Not Detected (NotDetected); Parainfluenza Virus 2 PCR Not Detected (NotDetected); Parainfluenza Virus 3 PCR Not Detected (NotDetected); Parainfluenza Virus 4 PCR Not Detected (NotDetected); Respiratory Syncytial VirusPCR Not Detected (NotDetected); Rhinovirus/Enterovirus PCR Not Detected (NotDetected)
[2024-04-16] MEDS: CARBOHYDRATES FOR HYPOGLYCEMIA PO PRN (14:32)
[2024-04-16] MEDS ORDERED: INSULIN ASPART PER UNIT CHARGE SQ SCH (14:38)
[2024-04-16 15:43] LABS: Calcium 7.3 mg/dl (8.6-10.3); Potassium 3.4 mmol/L (3.5-5.1)
[2024-04-16 15:50] LABS: BUN Creatinine Ratio 10.4 (10-20); Creatinine Clr Calc Pharmacy 89.4 ml/min
[2024-04-16] MEDS: INSULIN ASPART PER UNIT CHARGE SC SCH (16:50)
[2024-04-16 18:53] LABS: Adenovirus F 40/41 PCR Not Detected (NotDetected); Astrovirus PCR Not Detected (NotDetected); Campylobacter PCR Not Detected (NotDetected); Cryptosporidium PCR Not Detected (NotDetected); Cyclospora cayetanensis PCR Not Detected (NotDetected); Entamoeba histolytica PCR Not Detected (NotDetected); Enteroaggregative E.coli(EAEC) Not Detected (NotDetected); Enterotoxigenic E.coli (ETEC) Not Detected (NotDetected); Giardia lamblia PCR Not Detected (NotDetected); Norovirus GI/GII PCR DETECTED (NotDetected); Plesiomonas shigelloides PCR Not Detected (NotDetected); Rotavirus A PCR Not Detected (NotDetected); Salmonella PCR Not Detected (NotDetected); Sapovirus PCR Not Detected (NotDetected); Shiga-like Toxin E.coli (STEC) Not Detected (NotDetected); Shigella/Enteroinvasive E.coli Not Detected (NotDetected); Vibrio cholerae PCR Not Detected (NotDetected); Vibrio species PCR Not Detected (NotDetected); Yersinia enterocolitica PCR Not Detected (NotDetected)
[2024-04-16 18:57] LABS: Enteropathogenic E.coli (EPEC) DETECTED (NotDetected)
[2024-04-16 19:28] LABS: BUN Creatinine Ratio 9.1 (10-20); Calcium 6.7 mg/dl (8.6-10.3); Creatinine Clr Calc Pharmacy 89.4 ml/min; Phosphorus 3.9 mg/dl (2.5-4.9); Potassium 4.1 mmol/L (3.5-5.1)
[2024-04-17] MEDS: INSULIN ASPART PER UNIT CHARGE SC SCH ×2 (00:12→08:16)
[2024-04-17 05:11] LABS: Hematocrit (blood only) 34.3 % (37.0-47.0); Hemoglobin 12.2 g/dl (12.0-16.0); Mean Corpuscular Hemoglobin 29.8 pg (25.0-34.0); Mean Corpuscular Hgb Conc 35.6 g/dL (32.0-36.0); Mean Corpuscular Volume 83.7 fL (80.0-100.0); Platelet Count 233 K/uL (130-400); RDW Coefficient of Variation 12.2 % (11.5-14.5); RDW Standard Deviation 37.1 fL (36.4-46.3); White Blood Count 12.63 K/ul (4.8-10.8)
[2024-04-17 05:12] LABS: Basophils # (auto) 0.02 K/uL (0.00-0.20); Basophils % (auto) 0.2 %; Immature Granulocytes # (auto) 0.04 K/uL (0.01-0.20); Immature Granulocytes % (auto) 0.3 %; Lymphocytes # (auto) 2.29 K/uL (1.20-3.40); Lymphocytes % (auto) 18.1 %; Monocytes # (auto) 0.82 K/uL (0.11-0.59); Monocytes % (auto) 6.5 %; Neutrophils # (auto) 9.46 K/uL (1.40-6.50); Neutrophils % (auto) 74.9 %
[2024-04-17 05:39] LABS: BUN Creatinine Ratio 6.1 (10-20); Calcium 7.2 mg/dl (8.6-10.3); Creatinine Clr Calc Pharmacy 104.3 ml/min; Magnesium 2.1 mg/dl (1.7-2.4); Potassium 3.2 mmol/L (3.5-5.1)
[2024-04-17] MEDS: POTASSIUM CHLORIDE / WTR 10 MEQ/100 ML PLCT IV ONE (07:38)
[2024-04-17] MEDS: POTASSIUM CHLORIDE CRTAB 20 MEQ TABCR PO STA (07:38)
[2024-04-17] MEDS: ATORVASTATIN 10 MG TAB PO SCH (07:39)
[2024-04-17] MEDS: lisinopril 2.5 MG TAB PO SCH (07:39)
[2024-04-17] MEDS: cefTRIAXone SODIUM 2,000 MG/50 ML BAG IV ONE (08:18)
[2024-04-17] MEDS: CALCIUM GLUCONATE 1,000 MG/60 ML BAG IV SCH (08:18)
--- NOTE | 2024-04-17 10:14 | Pharmacy Report ---
Pharmacy Glycemic Short Note 2 - Date of Service April 17, 2024 - Glycemic Short BSG Results (Last 24 hours): 04/16/24 04/16/24 04/16/24 10:25 10:53 11:30 Glucose 208 H POC Glucose 210 H 157 H 04/16/24 04/16/24 04/16/24 12:27 14:00 14:30 Glucose POC Glucose 156 H 93 68 L* 04/16/24 04/16/24 04/16/24 14:48 15:10 15:12 Glucose 147 H POC Glucose 70 134 H 04/16/24 04/16/24 04/16/24 15:32 16:20 18:52 Glucose 317 H* POC Glucose 92 88 04/16/24 04/17/24 04/17/24 19:37 00:02 04:49 Glucose 158 H POC Glucose 244 H 225 H 04/17/24 04/17/24 04:52 07:04 Glucose POC Glucose 137 H 138 H OUTPATIENT ANTIDIABETIC REGIMEN: Spoke w patient 04/16 AM who reported the following about her Novolog insulin pump: * Basal * 1.15 units/hr continuous over 24 hours * CHO ratio * 12 g CHO/unit with breakfast * 15 g CHO/unit with lunch, dinner (doesn't check BSG at HS or have a snack. If she did, would also use this parameter) * Correction factor * 75 mg/dL/unit above 175 mg/dL * BSG's * Tend to be a little higher in the morning, hence the tighter CHO ratio * Highs can be 250-275 mg/dL * Lows usually are 150-175 mg/dL * Does not like to have lower BSG's HbA1c 10.4%, which may be explained by usual reported BSG's (above) ASSESSMENT: 04/17: * Transition to SC basal/bolus went well yesterday. Did have a slight low of 68 mg/dL but improved with treatment. * brought in home insulin pump supplies this AM. Will transition back to insulin pump this AM. Plan relayed to attending, RN, and certified nutritionist. 04/16: * 38 yo F with T1DM on Novolog pump as outpatient admitted with DKA. Etiology not likely pump related. * Discussed on ICU rounds - OK to stop dextrose-containing IV and transition to basal/bolus. * Transition to basal/bolus may be complicated by high insulin requirements at this time - drip currently running above 12 units/hr. * Will attempt transition today, but transition off may or may not be successful * Will give Lantus at slightly higher than home total daily dose PLAN FOR INPATIENT GLYCEMIC CONTROL: * Transition back to home insulin pump this morning * Home insulin pump patient agreement signed * Pharmacy will sign off
[2024-04-17] MEDS ORDERED: INSULIN ASPART 100 UNITS/ML VIAL SC PRN (10:45)
[2024-04-17] MEDS: AZITHROMYCIN 250 MG TAB PO ONE (11:34)
[2024-04-17] MEDS: INSULIN, Rapid-Acting PUMP SCH (12:26)
[2024-04-17 16:56] LABS: Albumin Globulin Ratio 1.2 (0.9-2); Albumin Level 3.6 gm/dl (3.4-5.0); BUN Creatinine Ratio 9.2 (10-20); Bilirubin,Total 0.6 mg/dl (0.2-1.0); Creatinine Clr Calc Pharmacy 108.3 ml/min; Globulin 3.1 gm/dl (2.5-4.0); Phosphorus 1.4 mg/dl (2.5-4.9); Potassium 3.5 mmol/L (3.5-5.1); Total Protein 6.7 gm/dl (6.0-8.3)
[2024-04-17] MEDS ORDERED: POTASSIUM PHOS 3 MMOL/1 ML INFUSION IV STA (16:59)
--- NOTE | 2024-04-17 17:03 | Hospitalist Progress Note ---
Date of Service April 17, 2024 Assessment & Plan (1) DKA (diabetic ketoacidosis): Plan: -noted to have pH below 7 on arrival to ED, severe DKA -much improved, insulin now shut off, gap closed x2 -feeling well overall, suspect infection as source of DKA -has been having some abdominal pain and SOB past few days as possible sources -UA is growing Strep B, will treat empirically Plan: -treat UA with 5 days of ceftriaxone, discussed with ICU attending -treat EPEC with azithromycin (2) Type I diabetes mellitus: Plan: -should follow up with endocrinology outpatient -pharmacy consult for glycemic management (3) Hyperkalemia: Plan: -resolved (4) Leukocytosis: Plan: -unclear source, but infection is likely cause of DKA Plan: -see above (5) Constipation: Plan: -likely 2/2 dehydration Plan: -miralax prn (6) Hypophosphatemia: Plan: -likely sequelae of DKA Plan: -aggressively replenish Plan Feeding/fluids: regular Analgesia: na for now Sedation: na Thromboprophylaxis: heparin Head up position: 30 degrees Ulcer prophylaxis: na Glycemic control: insulin pump Spontaneous breathing trial: room air Bowel care: start miralax prn Indwelling catheter removal: na Deescalation of antibiotics: ceftriaxone/azithro I spent a total of 45 minutes in direct patient care, including [id number] time with the patient and/or family, reviewing medical records, ordering and reviewing diagnostic tests, and coordinating care with other healthcare providers. This time includes: history taking, physical examination, medical decision making, counseling, ECG interpretation, imaging interpretation, lab interpretation, orders, and education, excluding time spent in the performance of separately billed services. Admission and Anticipated Discharge Date Admission Date: April 15, 2024 Subjective patient seen and examined at bedside. Patient is doing well today. She is eating full meals. Insulin pump has been dealt with by pharmacy and patient is functioning well on it, however patient still has electrolyte abnormalities including low phosphorus that requires replenishment and will not be able to discharge tonight. Review of Systems Review of Systems: CONSTITUTIONAL: Patient denies fevers, chills, sweats and weight changes. EYES: Patient denies any visual symptoms. EARS, NOSE, AND THROAT: No difficulties with hearing. No symptoms of rhinitis or sore throat. CARDIOVASCULAR: Patient denies chest pains, palpitations, orthopnea and paroxysmal nocturnal dyspnea. RESPIRATORY: No dyspnea on exertion, no wheezing or cough. GI: No nausea, vomiting, diarrhea, constipation, abdominal pain, hematochezia or melena. : No urinary hesitancy or dribbling. No nocturia or urinary frequency. No abnormal urethral discharge. MUSCULOSKELETAL: weakness, fatigue, improving NEUROLOGIC: No chronic headaches, no seizures. Patient denies numbness, tingling or weakness. PSYCHIATRIC: Patient denies problems with mood disturbance. No problems with anxiety. ENDOCRINE: No excessive urination or excessive thirst. DERMATOLOGIC: Patient denies any rashes or skin changes. Physical Exam Physical Exam: Gen: A&O 3 NAD HEENT: NCAT, EOMI, not icteric. External ears normal. No rhinorrhea. Moist mucous membranes. Neck: Supple, full range of motion, no observable masses, No meningeal sign. Lungs: No Respiratory distress. CV: RRR, no edema. Abdomen: Soft, nondistended, No rebound tenderness. MSK: No joint swelling, no redness. Skin: No rashes, petechiae, lesions. Normal color per patient. Neuro: Normal Gait, Grossly intact. Psych: Appropriate for situation. Results & Data Results & Data Vital Signs (Past 12 Hours) Vital Signs Temp Pulse Resp BP Pulse Ox O2 Del Method 04/17/24 15:00 Room Air 04/17/24 15:00 36.7 C 113 H 18 163/111 H 99 Room Air 04/17/24 12:00 37.1 C 113 H 24 156/107 H 99 Room Air 04/17/24 09:40 Room Air 04/17/24 08:00 37.2 C 107 H 16 166/104 H 99 Room Air Laboratory Results - personally interpreted, low phosphate typical of sequela of DKA, low calcium that was replenished low potassium that was replenished, continues to be tachycardic likely sequelae of DKA Medications Administered Atorvastatin Calcium (Atorvastatin 10 Mg Tab) 10 mg PO DAILY [facility] Stop: 05/17/24 08:59 Last Admin: 04/17/24 07:39 Dose: 10 mg Documented By: VERENA Heparin Sodium (Porcine) (Heparin Sod 5,000 Unit/0.5 Ml Vial) 5,000 units SQ Q8 JADIEL Stop: 05/15/24 21:59 Last Admin: 04/17/24 14:12 Dose: Not Given Documented By: Admin: 04/17/24 04:58 Dose: Not Given Documented By: Admin: 04/16/24 21:16 Dose: Not Given Documented By: Admin: 04/16/24 12:56 Dose: 5,000 units Documented By: Admin: 04/16/24 05:32 Dose: 5,000 units Documented By: Admin: 04/15/24 22:00 Dose: 5,000 units Documented By: GEN Insulin Aspart (Insulin, Rapid-Acting Pump) 1 each N/A [facility]; Protocol Stop: 05/17/24 11:29 Last Admin: 04/17/24 16:50 Dose: 1 each Documented By: SARA Co-signed By: FINESSE Admin: 04/17/24 12:26 Dose: 1 each Documented By: VERENA Co-signed By: SARA Lisinopril (Lisinopril 2.5 Mg Tab) 2.5 mg PO QAM JADIEL Stop: 05/17/24 08:59 Last Admin: 04/17/24 07:39 Dose: 2.5 mg Documented By: VERENA Menthol (Cough Drop (Sugar Free) Alix 24 Alix/1 Box) 1 alix BUCCAL NOW PRN PRN Reason: Sore Throat Stop: 05/15/24 20:02 Last Admin: 04/17/24 01:18 Dose: 1 alix Documented By: Admin: 04/16/24 05:36 Dose: 1 alix Documented By: GEN Miscellaneous (Carbohydrates For Hypoglycemia ) 15 - 30 gm PO UD PRN PRN Reason: Hypoglycemia Protocol Stop: 05/15/24 14:57 Last Admin: 04/16/24 14:32 Dose: 15 gm Documented By: MYRANDA Polyethylene Glycol (Polyethylene (Miralax) 17 Gm Pack) 17 gm PO DAILY PRN PRN Reason: Constipation Stop: 05/16/24 11:23 Last Admin: 04/16/24 12:29 Dose: 17 gm Documented By: MYRANDA (1) DKA (diabetic ketoacidosis) Diabetes mellitus complication detail: without coma Diabetes mellitus type: type 1 Qualified Code(s): E10.10 - Type 1 diabetes mellitus with ketoacidosis without coma (2) Type I diabetes mellitus Diabetes mellitus complication status: with hyperglycemia Qualified Code(s): E10.65 - Type 1 diabetes mellitus with hyperglycemia (4) Leukocytosis Leukocytosis type: bandemia Qualified Code(s): D72.825 - Bandemia (5) Constipation Constipation type: slow transit constipation Qualified Code(s): K59.01 - Slow transit constipation
[2024-04-17] MEDS: POTASSIUM PHOSPHATE 15 MMOL in SODIUM CHLORIDE 0.9% 250 ML IV ONE (17:49)
[2024-04-18] MEDS: GLUCOSE 40% GEL 15 GM TUBE PO PRN (00:56)
[2024-04-18 05:41] LABS: Albumin Globulin Ratio 1.1 (0.9-2); Albumin Level 3.3 gm/dl (3.4-5.0); Bilirubin,Total 0.8 mg/dl (0.2-1.0); Calcium 7.7 mg/dl (8.6-10.3); Creatinine Clr Calc Pharmacy 139.2 ml/min; Magnesium 1.9 mg/dl (1.7-2.4); Phosphorus 2.7 mg/dl (2.5-4.9); Potassium 3.1 mmol/L (3.5-5.1); Total Protein 6.3 gm/dl (6.0-8.3)
[2024-04-18 07:44] VITALS: RESP 18
[2024-04-18] MEDS: POTASSIUM CHLORIDE CRTAB 20 MEQ TABCR PO STA (07:47)
[2024-04-18] MEDS: POTASSIUM CHLORIDE / WTR 10 MEQ/100 ML PLCT IV ONE (07:47)
[2024-04-18 11:17] VITALS: BP 154/110; PULSE 108; TEMP 98.8; O2SAT 100
[2024-04-18 15:04] LABS: Hemoglobin 13.1 g/dl (12.0-16.0); Mean Corpuscular Hgb Conc 34.5 g/dL (32.0-36.0); Mean Platelet Volume 10.4 fL (9.4-12.4); Platelet Count 241 K/uL (130-400); RDW Coefficient of Variation 12.5 % (11.5-14.5); Red Blood Count 4.37 M/uL (4.20-5.40); White Blood Count 8.36 K/ul (4.8-10.8)
[2024-04-18] MEDS: INFLUENZA VACC TS2024-25(6m+)/PF (IIV3) 0.5mL Syr IM ONE (15:09)
[2024-04-18 16:03] LABS: Albumin Globulin Ratio 1.2 (0.9-2); Albumin Level 3.6 gm/dl (3.4-5.0); BUN Creatinine Ratio 13.1 (10-20); Bilirubin,Total 0.6 mg/dl (0.2-1.0); Creatinine Clr Calc Pharmacy 114.1 ml/min; Globulin 3.1 gm/dl (2.5-4.0); Magnesium 1.9 mg/dl (1.7-2.4); Phosphorus 1.9 mg/dl (2.5-4.9); Potassium 4.1 mmol/L (3.5-5.1); Total Protein 6.7 gm/dl (6.0-8.3)
--- NOTE | 2024-04-18 16:27 | Discharge Summary ---
Discharge Summary Date of Service April 18, 2024 Principal Dx & Hospital Course #1 = Principal Diagnosis (1) DKA (diabetic ketoacidosis): -noted to have pH below 7 on arrival to ED, severe DKA -much improved, insulin now shut off, gap closed x2 -feeling well overall, suspect infection as source of DKA -has been having some abdominal pain and SOB past few days as possible sources -UA is growing Strep B, will treat empirically Plan: -UTI treated with 3 day course, EPEC treated per pharmacy guideliness (2) Type I diabetes mellitus: -should follow up with endocrinology outpatient -pharmacy consult for glycemic management (3) Hyperkalemia: -resolved (4) Leukocytosis: -unclear source, but infection is likely cause of DKA Plan: -see above (5) Constipation: -likely 2/2 dehydration Plan: -miralax prn (6) Hypophosphatemia: -likely sequelae of DKA Plan: -aggressively replenish -send home with tid replenishment, f/u phosphorus/BMP/Mg in one week Notes For Next Care Provider 38-year-old female with past medical history of type 1 diabetes who presented with abdominal pain. In the ED, found to have severe DKA with electrolyte abnormalities and a pH below 7. Admitted to ICU for further management. In the ICU, patient placed on insulin drip with close monitoring. Patient went out of DKA with gap closed x 2. Patient transferred to the floor for further management. On the floor, electrolyte abnormalities were aggressively replenished. On 04/18/2024, patient's labs were back to normal except slightly low phosphorus. Had shared decision making with with patient and at bedside in regards to going home and following up with a phosphorus level in 1 week versus staying in the hospital for phosphorus replenishment. Risks and benefits were explained to the patient, including cardiac risks with phosphorus being low. Patient is very comfortable with going home with phosphorus replenishment and following up with labs in 1 week. Patient is medically stable for discharge at this time. Medication Changes From Visit -start phosphorus replenishment Admission HPI Per Admitting Provider History obtained from interview the patient and chart review. Patient is a 38-year-old female past medical history of type 1 diabetes mellitus, hypothyroidism, hyperlipidemia. She presents to the hospital with complaints of shortness of breath and fatigue for 1 day. She denies any fever, chills, chest pain, abdominal pain, urinary symptoms, joint pain or skin rash. She uses insulin pump; denies any malfunction. Diagnosed of type 1 diabetes in 2001. Has previous history of DKA requiring admission but not very recently. In the ED, patient was found to be normotensive, tachycardic, afebrile and saturating well on room air. She was found to have elevated WBC count Her VBG showed pH of less than 7 with bicarb of 5. Patient was referred for admission Discharge Exam Gen: A&O 3 NAD HEENT: NCAT, EOMI, not icteric. External ears normal. No rhinorrhea. Moist mucous membranes. Neck: Supple, full range of motion, no observable masses, No meningeal sign. Lungs: No Respiratory distress. CV: RRR, no edema. Abdomen: Soft, nondistended, No rebound tenderness. MSK: No joint swelling, no redness. Skin: No rashes, petechiae, lesions. Normal color per patient. Neuro: Normal Gait, Grossly intact. Psych: Appropriate for situation. Updated Medication List Medication Instructions Recorded Confirmed Type atorvastatin 10 mg tablet 10 mg PO DAILY 04/15/24 04/15/24 History insulin aspart U-100 100 unit/mL 0 - 70 sliding scale dose 04/15/24 04/15/24 History subcutaneous solution continuous subcutaneous infusion CONTINOUS lisinopril 2.5 mg tablet 2.5 mg PO QAM 04/15/24 04/15/24 History sodium di- and 1 tab PO TID #60 tabs 04/18/24 Rx monophosphate-potassium phos monobasic 250 mg tablet (Phosphorous) Hospital Stay Data Consultations 04/15/24 14:59 ED Decision to Admit Stat 04/15/24 15:40 Consult Corporate Strategist Routine Diagnostic Imagining Performed 04/15/24 12:31 CT abd pelvis wo con Stat Pending Results Patient Have Any Pending Studies at Discharge: No Discharge Instructions Given to Patient (Per Discharging Provider) 1. Please follow up with PCP and deployment technician. 2. Please check your phos level in one week. 3. Please supplement your diet with high phosphorus diet and phosphorus sup plementation. Total Time Total Time Spent Total Time Spent (In Minutes): I spent a total of 45 minutes in direct patient care, including [id number] time with the patient and/or family, reviewing medical records, ordering and reviewing diagnostic tests, and coordinating care with other healthcare providers. This time includes: history taking, physical examination, medical decision making, counseling, ECG interpretation, imaging interpretation, lab interpretation, orders, and education, excluding time spent in the performance of separately billed services.
== END 2024-04-18 18:17 | disposition home or self-care (01) | DRG 638 ==
LOC: ED 12:08 → SUATTDRO 15:40 → 1E 15:40